=== PATIENT | male | born 1965 | race Caucasian/White ===

== ENCOUNTER 2023-01-16 12:07 | Outpatient (CLI) | payer OTHER, SELFPAY ==
--- NOTE | ~2023-01-16 | PE_ITS ---
EXAMINATION: PET_PETPSMAST_PT DATE: 01/16/2023 14:52 INDICATION: Prostate cancer TECHNIQUE: 8.798 mCi of pipflufolastat F-18 (18-F-DCFPyL) was administered i.v. Low dose computed to mography (CT) images were acquired from the base of the brain to the base of the brain to the proxima l thighs for attenuation correction and anatomic localization. Positron emission tomography (PET) kayla ges were acquired in the same distribution beginning 99 minutes after injection. Images including fus ed PET/CT images were reconstructed in axial, coronal, and sagittal planes. Automated exposure contro l technique was employed. The dose-length product was 1257.17mGy-cm. COMPARISON: None FINDINGS: Head/neck: Typical pattern of symmetric physiologic increased activity in the lacrimal, parotid and submandibula r glands as well as along the mucosa of the nasal and oral cavities, the otis-, naso- and hypopharynx, the glottis and esophagus. No pathologically enlarged cervical lymphadenopathy or suspicious foci of increased uptake in the visualized head or neck. Chest: Elevation of the right hemidiaphragm with associated atelectasis at the right lower lobe and basilar right middle lobe. No suspicious pulmonary nodules, pneumonia, pulmonary edema or pleural effusion. H eart size is normal. No pericardial effusion. Thoracic aorta is normal in caliber. No pathologically enlarged or PSMA avid thoracic lymphadenopathy. Abdomen/pelvis/proximal thighs: Physiologic renal accumulation and excretion of activity in the kidneys, bladder and along portions o f ureters. Photopenic defect associated with a 3.5 cm cyst at the upper pole of the right kidney. Nor mal degree and slightly heterogenous pattern of increased uptake throughout the liver and spleen with out radiologic correlate or dominant PSMA avid lesion. The gallbladder, pancreas and bilateral adrena l glands are normal. Typical physiologic distribution of moderate uptake the duodenum and proximal je junum with mild uptake scattered throughout the more distal bowel. Normal appendix. Prostatomegaly me asuring 5.0 x 4.2 similar without evident PSMA avid lesions No other abnormal foci of increased uptak e or pathologically enlarged lymphadenopathy in the abdomen, pelvis or proximal thighs. 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 No suspicious lytic, blastic or PSMA avid bone lesions. IMPRESSION: 1. No PSMA avid lesions suspicious for metastatic prostate cancer. Reviewed, dictated and finalized at location A.
== END 2023-01-16 12:08 | disposition home or self-care (01) ==
PROVIDERS: PCP Nurse Practitioner Family; Visit Provider Urology
DX: C61 Malignant neoplasm of prostate (principal)
CPT/HCPCS: 78815; A9595

== ENCOUNTER 2023-05-09 09:56 | Outpatient (CLI) | payer OTHER, SELFPAY ==
--- NOTE | 2023-05-09 10:43 | ECG_ITS ---
Measurements Intervals [place] Rate: 72 P: -5 KS: 121 QRS: 7 QRSD: 100 T: 41 QT: 406 QTc: 447 Interpretive Statements SINUS RHYTHM FREQUENT VENTRICULAR PREMATURE COMPLEXES BASELINE ARTIFACT- I, II, III, AVR, AVL, AVF, V2-V4 ABNORMAL ECG NO PREVIOUS ECG AVAILABLE FOR COMPARISON Electronically Signed On 05-09-2023 11:43:24 [employer] by Adonay Mayorga D.O.
[2023-05-09 11:07] LABS: Basophils Percent Auto 0.3 % (0.2-1.2); Eosinophils Absolute Auto 0.1 K/mm3 (0-0.3); Eosinophils Percent Auto 1.5 % (0-4.4); Hematocrit 47.6 % (42.0-52.0); Hemoglobin 15.1 g/dL (14.0-18.0); Immature Granulocyte Absolute 0.03 K/mm3 (0.00-0.031); Immature Granulocyte Percent A 0.4 % (0-0.5); Lymphocytes Absolute Auto 1.99 K/mm3 (0.9-3.2); Lymphocytes Percent Auto 29.3 % (18.3-44.2); Mean Corpuscular HGB Conc 31.7 g/dl (32-36); Mean Corpuscular Hemoglobin 27.7 pg (26-34); Mean Corpuscular Volume 87.3 fl (80-100); Mean Platelet Volume 10.9 fl (7.4-10.4); Monocytes Absolute Auto 0.5 K/mm3 (0.1-0.6); Monocytes Percent Auto 7.5 % (2.6-8.5); Neutrophils Absolute Auto 4.1 K/mm3 (1.3-6.7); Platelet Count Result 187 k/mm3 (150-375); Red Blood Count 5.45 M/mm3 (4.6-6.20); Red Cell Distribution Width 13.7 % (11.5-14.5); White Blood Count 6.8 K/mm3 (4.5-10.0)
[2023-05-09 11:16] LABS: Alanine Aminotransferase 26 U/L (6-50); Albumin Level 4.5 g/dL (3.5-5.1); Alkaline Phosphatase 66 U/L (38-126); Anion Gap 7 mmol/L (8-16); Aspartate Amino Transferase 29 U/L (17-59); Blood Urea Nitrogen 9 mg/dL (9-20); Calcium 9.4 mg/dL (8.4-10.2); Carbon Dioxide 32 mmol/L (22-30); Chloride 99 mmol/L (98-107); Estimated Glomerular Filt Rate > 60; Glucose 91 mg/dL (65-110); Potassium 3.3 mmol/L (3.4-5.0); Sodium 138 mmol/L (137-145)
[2023-05-09 11:18] LABS: Prothrombin Time 13.2 Seconds (11.1-14.7)
[2023-05-09 11:19] LABS: Partial Thromboplastin Time 31.4 SECONDS (22.3-36.8)
== END 2023-05-09 09:57 | disposition home or self-care (01) ==
LOC: ANHSURGERY 10:02
PROVIDERS: PCP Nurse Practitioner Family; Visit Provider Urology
DX: Z01.818 Encounter for other preprocedural examination (principal); I10 Essential (primary) hypertension; C61 Malignant neoplasm of prostate; R94.31 Abnormal electrocardiogram [ECG] [EKG]
CPT/HCPCS: 36415; 80053; 85025; 85610; 85730; 86850; 86900; 86901; 87086; 93005

== ENCOUNTER 2023-05-21 00:06 | Day surgery (SDC) | payer OTHER, SELFPAY ==
--- NOTE | 2023-05-09 09:51 | PC.NURSE ---
PRE-OP INSTRUCTIONS, PLEASE READ CAREFULLY Report to the Outpatient Waiting Room, entrance under the green pavilion located off [facility], at time _0600_ on date _05/21/23_. Planned Procedure Time: _0730_. PACK A SMALL OVERNIGHT BAG AND LEAVE IN THE CAR Time changes happen often and if your time is changed the preop area will call you the afternoon before. - You and your visitor will be asked to self-screen and do not enter if you have any COVID symptoms. - A mask is optional within the hospital at this time. -VISITING HOURS 8AM-8PM Patients may have clear liquids (water, carbonated beverages, clear teas, apple juice) until 3 hours prior to surgery (0430 AM) with a maximum of 20 ounces. - No food from midnight until time of surgery Take the following medications with a SIP of water the morning of surgery: _NONE_ DO NOT STOP ANY OF YOUR OTHER PRESCRIPTION MEDICATIONS PRIOR TO SURGERY ?EXCEPT THE FOLLOWING Medications to discontinue per [facility] - _MULTIVITAMIN 7 DAYS PRIOR TO SURGERY, Date to take last dose 05/13/23_ Please no make-up, nail divehi, hairspray, perfume, deodorant, or body powder the day of surgery. No jewelry (including any body piercings) or valuables the day of surgery, leave them at home. Please take a shower or bath the night before, or the morning of, surgery with an antibacterial soap. Wear comfortable, loose fitting clothing. - Jewelry must be removed prior to entering the operating room. Rings and piercings that are not removed may be cut off. - The hospital will not accept responsibility for valuables. - Please leave all valuables, including medications, at home the day of surgery. If you are going home after surgery, a licensed swing driver must drive you home. - NO public transportation without another adult if you receive anesthesia. - We recommend that an adult stay with you for 24 hours following discharge. - We also recommend that you do not drive, make important decision, drink alcoholic beverages, or take any drugs that were not prescribed by your health care provider for at least 24 hours after your discharge time. Follow any additional instructions given to you from your surgeon. If you or anyone in your household have experienced Covid symptoms in the past week, please notify your surgeon or the nurse liaison at the phone number below for possible testing. Instructions given to _PATIENT_and asked if any additional questions and then verbalized understanding. Patient advised to call surgeon office or pre surgery nurse liaison [phone] if any additional questions.
[2023-05-09 10:21] VITALS: BP 124/74; PULSE 82; RESP 20; TEMP 36.8; O2SAT 100; BMI 33.0
--- NOTE | 2023-05-20 13:43 | P.PNAN_ITS ---
Anes - Initial Pre Proc Eval Procedure: Operation Date: 05/21/23 07:30 Proposed Procedures p Robotic Assisted Prostatectomy with Pelvic Lymph Node Dissection - Cem Ivey MD Date/Time: 05/20/23 13:43 Surgeon: Cem Ivey MD Pre Op Diagnosis: Prostate Ca Patient Data Age: 57 Gender: M Height: 1.91 m Weight: 120.1 kg Last Vital Signs Temp 98.3 F 05/09/23 10:21 Pulse 82 05/09/23 10:21 Resp 20 05/09/23 10:21 BP 124/74 05/09/23 10:21 Pulse Ox 100 05/09/23 10:21 O2 Del Method Room Air 05/09/23 10:21 Allergies Allergy/AdvReac Type Severity Reaction Status Date / Time No Known Allergies Allergy Verified 05/21/23 06:02 Home Medications Medication Instructions Recorded Confirmed Type amlodipine 5 mg tablet 5 mg HS 05/09/23 05/21/23 History atorvastatin 20 mg tablet 20 mg HS 05/09/23 05/21/23 History hydrochlorothiazide 12.5 mg tablet 12.5 mg QAM 05/09/23 05/21/23 History egyepadb-hr-nupda 300 mcg-K 60 1 tablet PO DAILY 05/09/23 05/21/23 History mcg-lycop 600 mcg-lutein 300 mcg tablet (Centrum Silver Men) Patient hx anesthesia problems: none Family hx anesthesia problems: none Results Review: All pre-operative results and documents have been reviewed as part of the pre- operative evaluation. PMFSH Social History Social History Smoking status: Never smoker Second hand tobacco smoke exposure: No Alcohol intake: never Substance use: never Substance use type: does not use Living arrangements: with family Spiritual care concerns: No Anes - Eval Final PreProcedure Day of Procedure 05/20/23 13:43 Patient weight: obese Heart: regular rate and rhythm Lungs: clear to auscultation Airway: Mallampati scale class II Neurological: alert and oriented Last oral intake: >/= 8 hours ASA classification: III Emergent: no Anesthetic plan: proceed Anesthesia type and monitoring: general ETT and standard monitoring Results Review: All pre-operative results and documents have been reviewed as part of the pre- operative evaluation. Informed Consent: The patient's anesthetic plan and its attendant risks and benefits were discussed with the patient/family/POA. Questions were solicited and answers provided to the satisfaction of the patient/family/POA.
[2023-05-21] VITALS (14 sets, daily range): BP systolic 105–146; BP diastolic 56–97; PULSE 62–104; RESP 12–18; TEMP 36.1–37.1; O2SAT 93–100
[2023-05-21] MEDS: LACTATED RINGERS 1,000 ML 30 ML IV CONT ×2 (06:28→12:06)
--- NOTE | 2023-05-21 07:16 | WPDHPUPDATE1 ---
History and Physical Update Update Date/Time: 05/21/23 07:16 History and Physical has been reviewed, including an updated exam of the patient. There are NO changes in the patient's condition. Risks, benefits, and alternatives have been discussed and questions answered. Patient agrees to proceed with procedure. Proceed with robotic assist nerve sparing prostatectomy with possible plnd
[2023-05-21] MEDS: ceFAZolin 2 GM/D5W 50 ML 2 GM/50 ML BAG IVPB (07:30)
[2023-05-21] MEDS: BUPivacaine HCL 0.5% PF 30 ML VIAL INFILTRATE (08:19)
--- NOTE | 2023-05-21 11:55 | W.PM.PROC2 ---
Procedure Note - Detailed Date of Procedure 05/21/23 Pre-op Diagnosis Prostate Ca Post-op Diagnosis Same Procedure Performed Robotic assisted nerve-sparing prostatectomy Surgeon Cem Ivey MD Anesthesia General Description of Procedure Patient is taken to the operative suite correctly identified. Once anesthesia was obtained was placed in low-lying dorsal lithotomy position and prepped draped usual sterile fashion. Supraumbilical incision was made and carried down to the rectus fascia. Veress needle was inserted the abdomen insufflated 15 mmHg pressure. Camera port was then placed under direct vision. Other working ports were placed. Patient was placed in steep Trendelenburg and the robot was docked. He did have quite a bit of adhesions of his left colon which were taken down. Posterior approach was then performed. The vas is were transected. He has very small seminal vesicles the left much smaller than the right. We did dissect these out. Plane between the prostate and rectum was developed. Bladder was then taken down. Puboprostatics were incised after the space of Retzius was developed bilaterally. Dorsal venous complex was isolated and secured using an 0 Vicryl. This was then lifted to the pubic bone. Bladder neck sparing procedure was then performed. The posterior bladder neck was open. The posterior sheath was incised in the prior dissected seminal vesicles and vas were isolated. Pedicles were clips. Bilateral nerve-sparing was performed although it was a wider dissection on the left side is things appeared to be somewhat adhered more. Dorsal venous complex was transected. Urethra was also transected. This was placed in Endo-Catch bag. Given his negative PSMA scan and a significant amount fat overlying the iliac vessels making it difficult to dissect out the external iliac vein I opted to hold off on lymphadenopathy. A Semaj stitch was then placed. Bladder neck was then anastomosed to the urethral stump using V lock in a running fashion. There was good approximation of mucosa to mucosa. It was a watertight closure. Sixteen Norwegian Phipps was placed inflated with 10 cc. 200 cc were placed in the Phipps without evidence of extravasation. All lap count needle count sponge counts were correct. SHANTE drain was brought out through the 4th working port site. This was secured. The robot was undocked. Midline incision was extended the specimen brought out. Rectus fascia was closed using 0 Vicryl. Subcuticular stitches were then placed. Incisions were anesthetized using 1% lidocaine. Patient tolerated procedure well without any complications and was taken recovery stable condition. This completes dictation please send a copy of this op note to my office. Estimated Blood Loss 100 Drains Yes Packing No Pathology Yes Complications No immediate complications Condition Stable Disposition PACU
[2023-05-21] MEDS: fentaNYL CITRATE INJ (*CRX) 100 MCG/2 ML VIAL 25 MCG IV PUSH ×4 (12:36→12:55)
--- NOTE | 2023-05-21 15:12 | ADMGEN ---
This patient, Efrain Wing, was admitted to 3 [facility] Surg Room 324-01. Patient/family oriented to hospital policies and general routines including ID bracelet, bed and alarms, visiting hours, pain management, procedures, bathroom and other care routines, personal items, smoking policy, room service/diet, and visiting hours. Information on how to activate the Rapid Response Team has been discussed. Patient/Family are encouraged to report perceived risks to care and to ask questions if they do not understand what they are told or what they should do. patient arrived at 1400 by stretcher from OR, denies pain, at bedside, hamida castro on, scd's on, fluids started
[2023-05-21] MEDS: LACTATED RINGERS 1,000 ML 125 ML IV CONT (15:18)
[2023-05-21] MEDS: amLODIPine BESYLATE 5 MG TABLET BY MOUTH (20:47)
[2023-05-21] MEDS: ATORVASTATIN 20 MG TABLET BY MOUTH (20:47)
[2023-05-21] MEDS: KETOROLAC 30 MG/ML VIAL (*BKC) IV PUSH (21:16)
[2023-05-22] MEDS: HYDROcodone/acetaminophen (*CRX) 5-325 MG TABLET 1 TAB PO (00:15)
[2023-05-22 03:35] VITALS: BP 108/69; PULSE 82; RESP 12; TEMP 36.4; O2SAT 97
[2023-05-22] MEDS: KETOROLAC 30 MG/ML VIAL (*BKC) IV PUSH (03:40)
[2023-05-22 06:52] LABS: Anion Gap 5 mmol/L (8-16); Blood Urea Nitrogen 8 mg/dL (9-20); Calcium 8.4 mg/dL (8.4-10.2); Carbon Dioxide 29 mmol/L (22-30); Chloride 102 mmol/L (98-107); Estimated CRCL calculation 100 ml/min; Estimated Glomerular Filt Rate > 60; Glucose 83 mg/dL (65-110); Potassium 3.8 mmol/L (3.4-5.0); Sodium 136 mmol/L (137-145)
[2023-05-22 06:58] LABS: Hematocrit 37.8 % (42.0-52.0); Hemoglobin 12.1 g/dL (14.0-18.0)
[2023-05-22 07:35] VITALS: BP 105/63; PULSE 80; RESP 13; TEMP 36.3; O2SAT 95
--- NOTE | 2023-05-22 08:08 | WPDUROPN2 ---
Progress Note: A&P Assessment and Plan (1) Adenocarcinoma of prostate: Code(s): C61 - Malignant neoplasm of prostate Status: Acute Assessment and Plan: Doing well. Increase activity. Most likely discharge home later today. Will plan on removing SHANTE today also. Follow-up in 1 week for catheter cystogram Subjective Subjective Date/Time Seen: 05/22/23 08:08 Post Op day: 1 (Robotic assisted nerve-sparing prostatectomy) Principal diagnosis: Adenocarcinoma prostate Interval history: Doing well overall postoperative day 1. Has some minimal discomfort. SHANTE with minimal all port. Urine is clear at this time Review of Systems Review of Systems: All systems reviewed & are unremarkable except as noted in HPI and below Exam Const: General: cooperative and comfortable Resp: Effort & Inspection: normal respiratory effort Cardio: Rate: regular rate Rhythm: regular rhythm GI: GI Palp: Yes Soft to palpation Urinary Catheter: Urinary Catheter: patent and draining and urine clear Objective Data Vital Signs Vital Signs: Vital Signs - 24 hr 05/21/23 12:06 05/21/23 12:15 05/21/23 12:30 Temperature 36.1 C L Pulse Rate 103 H 97 87 Respiratory Rate 17 17 12 Blood Pressure 137/97 H 124/75 135/88 Pulse Oximetry 99 100 94 Oxygen Delivery Simple Face Mask Simple Face Mask Nasal Cannula Oxygen Flow Rate 8 8 2 05/21/23 12:45 05/21/23 13:00 05/21/23 13:15 Temperature Pulse Rate 87 92 93 Respiratory Rate 14 14 14 Blood Pressure 132/85 126/84 128/85 Pulse Oximetry 93 95 96 Oxygen Delivery Nasal Cannula Nasal Cannula Nasal Cannula Oxygen Flow Rate 2 2 2 05/21/23 13:30 05/21/23 13:45 05/21/23 14:10 Temperature 36.8 C Pulse Rate 103 H 101 H 97 Respiratory Rate 15 16 18 Blood Pressure 128/86 119/78 119/76 Pulse Oximetry 100 98 96 Oxygen Delivery Nasal Cannula Nasal Cannula Oxygen Flow Rate 2 2 05/21/23 14:25 05/21/23 14:10 05/21/23 15:35 Temperature 36.3 C L 37.1 C Pulse Rate 96 96 Respiratory Rate 18 18 Blood Pressure 119/79 117/80 Pulse Oximetry 97 97 98 Oxygen Delivery Nasal Cannula Oxygen Flow Rate 2 05/21/23 19:32 05/21/23 22:13 01/23/24 23:10 Temperature 36.7 C 36.4 C Pulse Rate 62 75 Respiratory Rate 16 12 Blood Pressure 120/67 105/56 L Pulse Oximetry 98 97 Oxygen Delivery Room Air Oxygen Flow Rate 05/22/23 03:35 Temperature 36.4 C Pulse Rate 82 Respiratory Rate 12 Blood Pressure 108/69 Pulse Oximetry 97 Oxygen Delivery Oxygen Flow Rate Intake/Output Intake/Output: Intake & Output 05/19/23 05/20/23 05/21/23 05/22/23 23:59 23:59 23:59 23:59 Intake Total 790 2350 Output Total 405 580 Balance 385 1770 Meds/Results Medications: Active Medications Generic Name Dose Route Start Last Admin Trade Name Freq PRN Reason Stop Dose Admin Hydrocodone Bitart/Acetaminophen 1 tab 05/21/23 13:50 05/22/23 00:15 Hydrocodone/Acetaminophen (*Crx) 5-325 Mg Tablet PO 1 tab Q6H PRN Administration Pain Rated 1-3 Hydrocodone Bitart/Acetaminophen 2 tab 05/21/23 13:50 Hydrocodone/Acetaminophen (*Crx) 5-325 Mg Tablet PO Q6H PRN Pain Rated 4-6 Amlodipine Besylate 5 mg 05/21/23 21:00 05/21/23 20:47 Amlodipine Besylate 5 Mg Tablet BY MOUTH 5 mg HS CRISTIAN Administration Atorvastatin Calcium 20 mg 05/21/23 21:00 05/21/23 20:47 Atorvastatin 20 Mg Tablet BY MOUTH 20 mg HS CRISTIAN Administration Hydrochlorothiazide 12.5 mg 05/22/23 09:00 Hydrochlorothiazide 12.5 Mg Capsule BY MOUTH QAM CRISTIAN Hyoscyamine 0.125 mg 05/21/23 13:50 Hyoscyamine Sulfate 0.125 Mg Tablet SUBLINGUAL Q4H PRN Bladder Spasm Ketorolac Tromethamine 30 mg 05/21/23 13:50 05/22/23 03:40 Ketorolac 30 Mg/Ml Vial (*Bkc) IV PUSH 05/22/23 13:49 30 mg Q6H PRN Administration Pain Rated 4-6 Levofloxacin 500 mg 05/22/23 09:00 Levofloxacin 500 Mg Tablet PO DAILY CRISTIAN Morphine Sulfate
[2023-05-22] MEDS: hydroCHLOROthiazide 12.5 MG CAPSULE BY MOUTH (09:05)
[2023-05-22] MEDS: levoFLOXacin 500 MG TABLET PO (09:05)
--- NOTE | 2023-05-22 09:26 | WPDANESPN ---
Anes - Prog Note Post-Op Date/Time: 05/22/23 09:26 Cardiovascular status: normal Respiratory status: normal Airway patency: baseline Mental status: baseline Post-Op hydration status: normal Vital Signs: Last Vital Signs Temp 36.3 C L 05/22/23 07:35 Pulse 80 05/22/23 07:35 Resp 13 05/22/23 07:35 BP 105/63 05/22/23 07:35 Pulse Ox 95 05/22/23 07:35 O2 Del Method Room Air 05/21/23 22:13 O2 Flow Rate 2 05/21/23 14:10 Pain Score (VAS): 07/06 I/O: Intake & Output 05/21/23 05/22/23 05/22/23 23:59 07:59 15:59 Intake Total 240 2350 Output Total 200 580 Balance 40 1770 Laboratory Tests 05/22/23 06:10 05/22/23 06:10 05/22/23 06:10 Hgb 12.1 L D Hct 37.8 L Sodium 136 L Potassium 3.8 Chloride 102 Carbon Dioxide 29 Anion Gap 5 L BUN 8 L Creatinine 1.00 Estim Creat Clear Calc 100 Estimated GFR > 60 Glucose 83 Calcium 8.4 Post-procedural complaints: none Patient Feedback: Patient satisfied with anesthetic care.
[2023-05-22] MEDS: traMADol HCL (*CRX) 50 MG TABLET PO ×2 (10:00→15:31)
[2023-05-22 15:35] VITALS: BP 114/78; PULSE 103; RESP 13; TEMP 36.6; O2SAT 94
[2023-05-22] MEDS: ONDANSETRON INJ 4 MG/2 ML VIAL IV PUSH (16:38)
== END 2023-05-22 18:00 | disposition home or self-care (01) ==
LOC: ANHSURGERY 05:55 → ANH3MEDSUR 14:24
PROVIDERS: PCP Nurse Practitioner Family; Visit Provider Urology
PROC: 0VT04ZZ Resection of Prostate, Percutaneous Endoscopic Approach (ICD-10-PCS; CPT 55867; principal; 2023-05-21 07:30)
DX: C61 Malignant neoplasm of prostate (principal); E66.9 Obesity, unspecified; Z68.31 Body mass index [BMI] 31.0-31.9, adult
CPT/HCPCS: 55866; S2900; 36415; 80048; 80053; 85014; 85018; 85025; 85610; 85730; 86850; 86900; 86901; 87086; 88309; 93005; A9270; J0330; J0690; J1170; J1885; J2250; J2270; J2405; J2704; J3010; J7030; J7120

== ENCOUNTER 2023-05-24 16:00 | Observation (INO) | payer OTHER, SELFPAY ==
[2023-05-24] VITALS (22 sets, daily range): BP systolic 110–137; BP diastolic 74–97; PULSE 70–105; RESP 10–17; TEMP 36.6–37; O2SAT 91–99; BMI 30.8
--- NOTE | ~2023-05-24 | CT_ITS ---
EXAMINATION: CT abdomen pelvis w con DATE: 05/24/2023 18:41 INDICATION: Prostate cancer status post prostatectomy. Pelvic pain. Nausea and vomiting. Constipation . TECHNIQUE: Computed tomography (CT) of the abdomen and pelvis was performed with 100 mL Omnipaque 350 intravenous contrast. Automated exposure control and iterative reconstruction technique were employe d. The dose-length product was 1981.50 mGy-cm. COMPARISON: PET/CT 01/16/23 FINDINGS: The visualized portions of the lung bases demonstrate mild atelectasis. No pleural effusion . The heart size is normal. No pericardial effusion. The liver and spleen are normal. There is sludge in the gallbladder, which is normal in size. Calcifications in the tail of the pancreas are consiste nt with chronic pancreatitis. The adrenal glands are normal. There are cysts in the kidneys measuring up to 4.0 cm on the right. There is a Phipps catheter in expected position. There is a small volume o f hematoma in the bladder. There are dilated loops of small bowel without focal transition point and with wall thickening of some of the small bowel loops. The appendix is normal. There is free intraper itoneal gas, consistent with recent surgery. Extensive body wall gas is noted. There is a small volum e of ascites. There are bilateral inguinal hernias containing fat. There is skin thickening in the sc rotum. There are chronic bilateral L5 pars defects. There is 11 mm anterolisthesis of L5 on S1. There is severe thoracic and lumbar spondylosis. There is mild chronic anterior wedging of multiple verteb ral bodies. IMPRESSION: 1. Extensive body wall gas. 2. Free intraperitoneal gas, consistent with recent surgery. 3. Small volume of ascites. 4. Multiple dilated loops of small bowel with wall thickening of some of the loops, consistent with e nteritis and adynamic ileus. 5. Small volume of hematoma in the bladder. Reviewed, dictated and finalized at location [facility]. [facility] IMPRESSION: 1. Extensive body wall gas. 2. Free intraperitoneal gas, consistent with recent surgery. 3. Small volume of ascites. 4. Multiple dilated loops of small bowel with wall thickening of some of the lo ops, consistent with enteritis and adynamic ileus. 5. Small volume of hematoma in the bladder.
--- NOTE | 2023-05-24 16:49 | ED.GENADULT ---
HPI - General Adult General Chief complaint: Recheck/Abnormal Lab/Rx Stated complaint: post op problems Time Seen by Provider: 05/24/23 16:49 Source: patient History of Present Illness HPI narrative: Patient is status post robotic assisted nerve-sparing prostatectomy secondary to adenocarcinoma prostate May 21 2023. Patient was discharged 1 day later, since that time until now patient been vomiting nonstop on average 8-10 times a day unable to keep food, fluid or medicine down. Patient had Phipps catheter placed on the during the surgery. Used to have urinary tract infection prior to the surgery and supposed to be on Bactrim which you could intake for the last 48 hours because of the vomiting. Patient was seen at [facility] last night and discharged from the emergency room at 5:00 a.m. today with possible enteritis. Patient is back to our emergency room because his vomiting did not get better although he had been discharged on Zofran and tramadol. Patient denies any fever, chills, diarrhea, constipation, abdominal pain, chest pain or shortness of breath. He reports a lot of gas. Currently patient main complaint is feeling dry and exhausted Related Data Home Medications Medication Instructions Recorded Confirmed amlodipine 5 mg tablet 5 mg HS 05/09/23 05/21/23 atorvastatin 20 mg tablet 20 mg HS 05/09/23 05/21/23 hydrochlorothiazide 12.5 mg tablet 12.5 mg QAM 05/09/23 05/21/23 dpcyyocc-go-xglse 300 mcg-K 60 1 tablet PO DAILY 05/09/23 05/21/23 mcg-lycop 600 mcg-lutein 300 mcg tablet (Centrum Silver Men) Allergies Allergy/AdvReac Type Severity Reaction Status Date / Time No Known Allergies Allergy Verified 05/24/23 16:51 Review of Systems Review of Systems: All systems reviewed & are unremarkable except as noted in HPI and below [facility] Social History Social History Smoking status: Never smoker Second hand tobacco smoke exposure: No Alcohol intake: never Substance use: never Substance use type: does not use Do You Feel Safe in your Home?: No Lack of Transportation: No Lack of Food: Never True Current Housing: I Have Housing Concerned About Future Housing: No Difficulty Paying Gas/Electric Bills: No Difficulty Paying for Meds: No Currently Unemployed: No Education: High School Diploma/GED Difficulty w/ Childcare or Family Care: No Living arrangements: with family Spiritual care concerns: No Exam Narrative: General appearance: Well-developed, well-nourished Skin: Normal color Head: Normocephalic, nontraumatic Eyes: Clear conjunctiva ENT: Oropharynx normal, ears normal, nose normal Neck: Supple, nontender Chest and respiratory: Airway patent, no respiratory distress, no accessory muscle use Heart: Regular rate/rhythm Abdomen: Soft, nontender, no organomegaly, quiet bowel sounds, surgical scar dry and clean Vascular: Normal peripheral pulses, normal capillary refill. Musculoskeletal: Normal range of motion, nontender back Neurologic: Alert and oriented ?3, [employer] is normal as tested, no gross motor deficit Course Consultations Consultation #1: DR ORDONEZ AGREED WITH THE PLAN AND ADMISSION. Date: 05/24/23 Time: 20:51 Vital Signs Vital signs: Vital Signs Temperature 37.0 C 05/24/23 16:00 Pulse Rate 105 H 05/24/23 16:00 Respiratory Rate 16 05/24/23 16:00 Blood Pressure 124/83 05/24/23 16:00 Pulse Oximetry 98 05/24/23 16:00 Temperature 37.0 C 05/24/23 16:00 Pulse Rate 79 05/24/23 18:05 Respiratory Rate 14 05/24/23 18:05 Blood Pressure 126/84 05/24/23 18:05 Pulse Oximetry 96
[2023-05-24 17:50] LABS: Basophils Percent Auto 0.2 % (0.2-1.2); Eosinophils Percent Auto 0.1 % (0-4.4); Hematocrit 44.9 % (42.0-52.0); Hemoglobin 14.2 g/dL (14.0-18.0); Immature Granulocyte Absolute 0.06 K/mm3 (0.00-0.031); Immature Granulocyte Percent A 0.4 % (0-0.5); Lymphocytes Absolute Auto 1.13 K/mm3 (0.9-3.2); Mean Corpuscular HGB Conc 31.6 g/dl (32-36); Mean Corpuscular Hemoglobin 27.7 pg (26-34); Mean Corpuscular Volume 87.7 fl (80-100); Mean Platelet Volume 10.9 fl (7.4-10.4); Monocytes Percent Auto 6.9 % (2.6-8.5); Neutrophils Absolute Auto 11.9 K/mm3 (1.3-6.7); Neutrophils Percent Auto 84.4 % (45.5-73.1); Platelet Count Result 297 k/mm3 (150-375); Red Blood Count 5.12 M/mm3 (4.6-6.20); Red Cell Distribution Width 14.6 % (11.5-14.5); White Blood Count 14.1 K/mm3 (4.5-10.0)
[2023-05-24 18:03] LABS: Appearance Urine Cloudy (Clear); Bacteria Urine None Seen /hpf; Bilirubin Urine Negative (Negative); Blood Urine 3+ (Negative); Color Urine Dark Yellow (Yellow); Glucose Urine UA Negative (Negative); Ketones Urine 1+ mg/dL (Negative); Leukocyte Esterase Ur Trace LEU/UL (Negative); Need Manual Microscopic Reviewed; Nitrate Urine Negative (Negative); Protein Urine 2+ mg/dL (Negative); RBC Urine 51-100 /hpf (0-2); Squamous Epithelial Cell Urine None seen /hpf (Few); pH Urine 6.5 (5.0-9.0)
[2023-05-24] MEDS: SODIUM CHLORIDE 0.9% IV 2,000 ML 999 ML IV CONT (18:03)
[2023-05-24 18:04] LABS: Add Urine Microscopic? YES; Specific Grav Ur 1.043 (1.001-1.035)
[2023-05-24 18:06] LABS: Lactic Acid Reflex 1.6 mmol/L (0.7-2.0)
[2023-05-24 18:07] LABS: Alanine Aminotransferase 16 U/L (6-50); Albumin Level 3.9 g/dL (3.5-5.1); Alkaline Phosphatase 68 U/L (38-126); Anion Gap 5 mmol/L (8-16); Aspartate Amino Transferase 20 U/L (17-59); Blood Urea Nitrogen 18 mg/dL (9-20); Calcium 9.6 mg/dL (8.4-10.2); Carbon Dioxide 36 mmol/L (22-30); Chloride 97 mmol/L (98-107); Estimated CRCL calculation 110 ml/min; Estimated Glomerular Filt Rate > 60; Glucose 138 mg/dL (65-110); Lipase 37 U/L (23-300); Potassium 3.5 mmol/L (3.4-5.0); Sodium 138 mmol/L (137-145)
[2023-05-24 18:29] LABS: Influenza A QL RT-PCR Negative (Negative); Influenza B QL RT-PCR Negative (Negative); RSV RNA, RT-PCR Negative (Negative); SARS-CoV-2 RNA PCR Negative (Negative)
--- NOTE | 2023-05-24 19:20 | PC.NURSE ---
this rn assumed care of patient. this rn took patient report from jet red.
--- NOTE | 2023-05-24 19:22 | PC.NURSE ---
report given to Tangela PAGAN, all questions answered
--- NOTE | 2023-05-24 20:24 | PM.IMHP ---
H&P: HPI History of Present Illness Date/Time: 05/24/23 20:24 Chief Complaint: Weakness, nausea vomiting Narrative: Patient has history of prostatic adenocarcinoma cancer for which he got robotic prostatectomy on May 22, he stated surgery was prolonged. After discharge patient has not been able to keep anything down, he vomited 8 x 2 days ago and ever since then hardly eat or drink, he denied diarrhea cough congestion sore throat or abdominal pain. No fever. Reported associated bloating, he passes gas. He presented to a different ED yesterday where he was evaluated with no significant finding, he was rehydrated and discharged home however symptoms continued. He formed he has urologist who recommended coming to the ED for subsequent evaluation. Workup in the emergency department revealed the patient has adynamic ileus, colitis and extensive abdominal wall gas. Patient has been rehydrated, nausea has improved however still complain of weakness, no significant electrolyte imbalance and viral screen was negative. Review of Systems Review of Systems: All systems reviewed & are unremarkable except as noted in HPI and below PMFSH Social History Social History Smoking status: Never smoker Second hand tobacco smoke exposure: No Alcohol intake: never Substance use: never Substance use type: does not use Do You Feel Safe in your Home?: No Lack of Transportation: No Lack of Food: Never True Current Housing: I Have Housing Concerned About Future Housing: No Difficulty Paying Gas/Electric Bills: No Difficulty Paying for Meds: No Currently Unemployed: No Education: High School Diploma/GED Difficulty w/ Childcare or Family Care: No Living arrangements: with family Spiritual care concerns: No Meds Home Medications and Allergies Home Medications Medication Instructions Recorded Confirmed Type amlodipine 5 mg tablet 5 mg HS 05/09/23 05/21/23 History atorvastatin 20 mg tablet 20 mg HS 05/09/23 05/21/23 History hydrochlorothiazide 12.5 mg tablet 12.5 mg QAM 05/09/23 05/21/23 History [id number]-[id number] 300 mcg-K 60 1 tablet PO DAILY 05/09/23 05/21/23 History mcg-lycop 600 mcg-lutein 300 mcg tablet (Centrum Silver Men) sulfamethoxazole 800 1 tablet PO DAILY #7 tabs 05/22/23 Rx mg-trimethoprim 160 mg tablet (Bactrim DS) tramadol 50 mg tablet 50 mg PO Q6H PRN pain #20 tabs 05/22/23 Rx Allergies Allergy/AdvReac Type Severity Reaction Status Date / Time No Known Allergies Allergy Verified 05/24/23 16:51 Vital Signs Vital Signs - 24 hr 05/24/23 16:00 05/24/23 16:52 05/24/23 18:05 Temperature 98.6 F Pulse Rate 105 H 88 79 Respiratory Rate 16 15 14 Blood Pressure 124/83 137/97 H 126/84 Pulse Oximetry 98 95 95 Oxygen Delivery Oxygen Flow Rate 05/24/23 19:08 05/24/23 16:55 05/24/23 17:00 Temperature Pulse Rate 91 89 Respiratory Rate 13 15 Blood Pressure 131/86 Pulse Oximetry 96 96 94 Oxygen Delivery Nasal Cannula Oxygen Flow Rate 2 05/24/23 17:01 05/24/23 17:48 05/24/23 18:00 Temperature Pulse Rate 89 83 84 Respiratory Rate 16 12 12 Blood Pressure Pulse Oximetry 95 95 95 Oxygen Delivery Oxygen Flow Rate 05/24/23 18:15 05/24/23 18:16 05/24/23 18:42 Temperature Pulse Rate 70 70 84 Respiratory Rate 11 L 11 L Blood Pressure 124/82 Pulse Oximetry 97 98 96 Oxygen Delivery Oxygen Flow Rate 05/24/23 18:43 05/24/23 18:48 Temperature Pulse Rate 83 84 Respiratory Rate 16 Blood Pressure 110/78 Pulse Oximetry 96 94 Oxygen Delivery Oxygen Flow Rate Exam Narrative: General:patient is alert oriented x4, not in distress HEENT: Normocephalic atraumatic, EOMI Respiratory: Clear to auscultation bilaterally Cardiovascular: Regular rate and rhythm normal no gallop no edema Gastrointestinal: Surgical incision sites clean and well dressed no
[2023-05-24] MEDS: metroNIDAZOLE 500 MG/ISO 100ML 500 MG/100 ML BAG 100 MG IVPB (21:00)
--- NOTE | 2023-05-24 23:00 | ADMGEN ---
This patient, Efrain Wing, was admitted to 3 Med Surg Room 301-01 at 2120. Patient/family oriented to hospital policies and general routines including ID bracelet, bed and alarms, visiting hours, pain management, procedures, bathroom and other care routines, personal items, smoking policy, room service/diet, and visiting hours. Information on how to activate the Rapid Response Team has been discussed. Patient/Family are encouraged to report perceived risks to care and to ask questions if they do not understand what they are told or what they should do.
[2023-05-24] MEDS: SODIUM CHLORIDE 0.9% IV 1,000 ML 125 ML IV CONT (23:16)
[2023-05-24] MEDS: levoFLOXacin 750 MG/D5W 150 ML 750 MG/150 ML BAG 100 MG IVPB (23:16)
[2023-05-25 00:36] VITALS: BP 117/77; PULSE 74; RESP 13; TEMP 36.5; O2SAT 98
[2023-05-25] MEDS: metroNIDAZOLE 500 MG/ISO 100ML 500 MG/100 ML BAG 100 MG IVPB ×3 (05:28→20:47)
[2023-05-25 05:35] VITALS: BP 120/81; PULSE 79; RESP 12; TEMP 36.5; O2SAT 97
[2023-05-25 06:18] LABS: Basophils Absolute Auto 0.1 K/mm3 (0.0-0.1); Basophils Percent Auto 0.5 % (0.2-1.2); Eosinophils Absolute Auto 0.3 K/mm3 (0-0.3); Eosinophils Percent Auto 3.4 % (0-4.4); Hematocrit 38.1 % (42.0-52.0); Hemoglobin 12.2 g/dL (14.0-18.0); Immature Granulocyte Absolute 0.05 K/mm3 (0.00-0.031); Immature Granulocyte Percent A 0.5 % (0-0.5); Lymphocytes Absolute Auto 1.48 K/mm3 (0.9-3.2); Lymphocytes Percent Auto 14.7 % (18.3-44.2); Mean Corpuscular Hemoglobin 28.2 pg (26-34); Mean Corpuscular Volume 88.2 fl (80-100); Mean Platelet Volume 10.7 fl (7.4-10.4); Monocytes Absolute Auto 0.8 K/mm3 (0.1-0.6); Monocytes Percent Auto 8.2 % (2.6-8.5); Neutrophils Absolute Auto 7.3 K/mm3 (1.3-6.7); Neutrophils Percent Auto 72.7 % (45.5-73.1); Platelet Count Result 234 k/mm3 (150-375); Red Blood Count 4.32 M/mm3 (4.6-6.20); Red Cell Distribution Width 14.6 % (11.5-14.5); White Blood Count 10.1 K/mm3 (4.5-10.0)
[2023-05-25 06:30] LABS: Anion Gap 5 mmol/L (8-16); Blood Urea Nitrogen 17 mg/dL (9-20); Calcium 8.7 mg/dL (8.4-10.2); Carbon Dioxide 31 mmol/L (22-30); Chloride 101 mmol/L (98-107); Estimated CRCL calculation 121 ml/min; Estimated Glomerular Filt Rate > 60; Glucose 98 mg/dL (65-110); Potassium 3.2 mmol/L (3.4-5.0); Sodium 137 mmol/L (137-145)
[2023-05-25] MEDS: SODIUM CHLORIDE 0.9% IV 1,000 ML 125 ML IV CONT (08:33)
[2023-05-25 08:35] VITALS: O2SAT 94
[2023-05-25] MEDS: hydroCHLOROthiazide 12.5 MG CAPSULE PO (08:35)
[2023-05-25 09:21] VITALS: PULSE 89; O2SAT 94
--- NOTE | 2023-05-25 11:10 | PM.CNGS ---
Assessment and Plan Assessment and plan (1) Adynamic ileus: Code(s): K56.0 - Paralytic ileus Status: Acute Assessment and Plan: slowly resolving, exam benign, having bowel sounds and flatus, replace electrolytes, encourage out of bed, ambulation, start clears for now (2) Adenocarcinoma of prostate: Code(s): C61 - Malignant neoplasm of prostate Status: Acute Assessment and Plan: status post prostatectomy, management per urology History of Present Illness Consult details Consult date: 05/25/23 Reason for consult: abdominal pain Requesting physician: Henry Hobbs MD Narrative: The patient is a 57-year-old male presenting to the emergency department complaining of intractable nausea and vomiting over the last few days. The patient reports that he has not had a bowel movement since 05/20. The patient had robotic assisted prostatectomy on 05/21. Workup in the emergency department, including imaging, is significant for adynamic ileus. Of note, the patient reports he feels better this morning and is passing flatus. Review of Systems Review of Systems: All systems reviewed & are unremarkable except as noted in HPI and below PMFSH Family History Family History Father Malignant neoplasm of prostate Esophageal cancer Sibling Malignant neoplasm of prostate Basal cell carcinoma Mother Hypertension Basal cell carcinoma Other Stomach cancer paternal uncle Social History Social History Smoking status: Never smoker Second hand tobacco smoke exposure: No Alcohol intake: current Drinks per week: 1 Substance use: never Substance use type: does not use Do You Feel Safe in your Home?: Yes Lack of Transportation: No Lack of Food: Never True Current Housing: I Have Housing Concerned About Future Housing: No Difficulty Paying Gas/Electric Bills: No Difficulty Paying for Meds: No Currently Unemployed: No Education: Bachelor's Degree Difficulty w/ Childcare or Family Care: No Living arrangements: with family Spiritual care concerns: No Meds Home Medications and Allergies Home Medications Medication Instructions Recorded Confirmed Type amlodipine 5 mg tablet 5 mg HS 05/09/23 05/24/23 History atorvastatin 20 mg tablet 20 mg HS 05/09/23 05/24/23 History hydrochlorothiazide 12.5 mg tablet 12.5 mg PO DAILY 05/09/23 05/24/23 History [id number] 300 mcg-K 60 1 tablet PO DAILY 05/09/23 05/24/23 History mcg-lycop 600 mcg-lutein 300 mcg tablet (Centrum Silver Men) tramadol 50 mg tablet 50 mg PO Q6H PRN pain #20 tabs 05/22/23 05/24/23 Rx Allergies Allergy/AdvReac Type Severity Reaction Status Date / Time No Known Allergies Allergy Verified 05/24/23 23:15 Vital Signs Vital Signs - 24 hr 05/24/23 16:00 05/24/23 16:52 05/24/23 18:05 Temperature 37.0 C Pulse Rate 105 H 88 79 Respiratory Rate 16 15 14 Blood Pressure 124/83 137/97 H 126/84 Pulse Oximetry 98 95 95 Oxygen Delivery Oxygen Flow Rate 05/24/23 19:08 05/24/23 16:55 05/24/23 17:00 Temperature Pulse Rate 91 89 Respiratory Rate 13 15 Blood Pressure 131/86 Pulse Oximetry 96 96 94 Oxygen Delivery Nasal Cannula Oxygen Flow Rate 2 05/24/23 17:01 05/24/23 17:48 05/24/23 18:00 Temperature Pulse Rate 89 83 84 Respiratory Rate 16 12 12 Blood Pressure Pulse Oximetry 95 95 95 Oxygen Delivery Oxygen Flow Rate 05/24/23 18:15 05/24/23 18:16 05/24/23 18:42 Temperature Pulse Rate 70 70 84 Respiratory Rate 11 L 11 L Blood Pressure 124/82 Pulse Oximetry 97 98 96 Oxygen Delivery Oxygen Flow Rate 05/24/23 18:43 05/24/23 18:48 05/24/23 20:08 Temperature Pulse Rate 83 84 82 Respiratory Rate 16 12 Blood Pressure 110/78 Pulse Oximetry 96 94 97 Oxygen Delivery Oxygen Flow Rate 05/24/23 20:15
[2023-05-25 14:00] VITALS: BP 115/77; PULSE 76; RESP 18; TEMP 36.5; O2SAT 97
--- NOTE | 2023-05-25 15:45 | PM.IMPN ---
Progress Note: A&P Assessment and Plan (1) Adynamic ileus: Code(s): K56.0 - Paralytic ileus Status: Acute (2) Vomiting: Code(s): R11.10 - Vomiting, unspecified Status: Acute (3) Enteritis: Code(s): K52.9 - Noninfective gastroenteritis and colitis, unspecified Status: Acute (4) UTI (urinary tract infection): Code(s): N39.0 - Urinary tract infection, site not specified Status: Acute (5) Colitis: Code(s): K52.9 - Noninfective gastroenteritis and colitis, unspecified Status: Acute (6) Gastroenteritis: Code(s): K52.9 - Noninfective gastroenteritis and colitis, unspecified Status: Acute (7) Ileus, postoperative: Code(s): K91.89 - Other postprocedural complications and disorders of digestive system; K56.7 - Ileus, unspecified Status: Acute (8) Adenocarcinoma of prostate: Code(s): C61 - Malignant neoplasm of prostate Status: Acute Time Spent With Patient Time: Continue with current medications Continue with IV antibiotics in the form of IV levofloxacin and metronidazole ... Day 2 Continue with the IV hydration; decreased rate from 125 to 75 cc/hour Hold off on diuretics General surgery consultation reviewed and appreciated Started patient on clear liquid diet Advance diet slowly as Dr. Garcia Urology consult given for evaluation and top management recommendations DC planning to be considered in a.m. if he remains stable and cleared by specialists ? Patient seen and examined at bedside during my morning rounds ? Collaborated with patient's nurse at the bedside in detail and addressed all concerns ? Labs, electrolytes, radiology, investigations and test results reviewed ? Consult/Nursing/Ancilliary notes on the chart reviewed and appreciated ? Spoke with patient/family at the bedside and answered all the questions that they had Repeat labs in a.m. Electrolyte replacement as per protocol. Patient will be monitored very closely on the floor. Further recommendations as per the hospital course. Time with patient: 25 - 35 minutes Subjective Date/time seen: 05/25/23 15:45 Interval history: Patient seen and evaluated by General surgery. Started on clear liquid diet. Abdominal pain is slowly improving and patient is passing flatus. Review of Systems Review of Systems: 14 systems were reviewed with pertinent positives and negatives per HPI. Except as documented in the HPI/progress notes, all other systems were reviewed and are negative. All systems reviewed & are unremarkable except as noted in HPI and below Exam Narrative: PHYSICAL EXAMINATION: Vital signs: Please see the chart General physical exam: Patient lying in bed, pleasant cooperative, feels tired and fatigued Head/eyes: Atraumatic, EOMI, PERRLA ENT: Moist mucous membranes, nasal passages clear Neck: Supple, full range of motion, trachea midline CVS: S1 + S2, regular rate and rhythm, no murmurs Respiratory: Bilaterally fair air entry in both lung valle, mild B/L crackles, symmetric chest expansion, no distress Abdomen: Soft, + mild given distension, +mild abdominal tenderness on palpation, bowel sounds +ve but hypoactive Extremities: No clubbing, no cyanosis, no edema, no calf tenderness Musculoskeletal: Moves all, adequate range of motion, no muscle spasms Skin: Warm, dry, no jaundice, no cyanosis Neurological: Awake, alert, oriented x 3, cranial nerves II-XII intact, no focal neurological deficits Psychiatric: Normal mood, non suicidal Objective Data Vital Signs Vital Signs: Vital Signs - 24 hr 05/24/23 16:00 05/24/23 16:52 05/24/23 18:05 Temperature 37.0 C Pulse Rate 105 H 88 79 Respiratory Rate 16 15 14 Blood Pressure 124/83 137/97 H 126/84 Pulse Oximetry 98 95 95 Oxygen Delivery Oxygen Flow Rate 05/24/23 19:08 05/24/23 16:55 05/24/23 17:00 Temperature Pulse Rate 91 89 Respiratory Rate 13 15 Blood Pressure 131/86
[2023-05-25] MEDS: amLODIPine BESYLATE 5 MG TABLET PO (20:45)
[2023-05-25] MEDS: ATORVASTATIN 20 MG TABLET PO (20:46)
[2023-05-25 22:00] VITALS: BP 101/73; PULSE 76; RESP 14; TEMP 36.6; O2SAT 96
[2023-05-25] MEDS: levoFLOXacin 750 MG/D5W 150 ML 750 MG/150 ML BAG 100 MG IVPB (22:11)
[2023-05-25] MEDS: SODIUM CHLORIDE 0.9% IV 1,000 ML 75 ML IV CONT (22:11)
[2023-05-26] MEDS: metroNIDAZOLE 500 MG/ISO 100ML 500 MG/100 ML BAG 100 MG IVPB ×2 (05:38→15:23)
[2023-05-26 06:00] VITALS: BP 107/71; PULSE 69; RESP 16; TEMP 36.4; O2SAT 94
[2023-05-26 07:18] LABS: Basophils Percent Auto 0.4 % (0.2-1.2); Eosinophils Absolute Auto 0.3 K/mm3 (0-0.3); Eosinophils Percent Auto 3.9 % (0-4.4); Hemoglobin 11.6 g/dL (14.0-18.0); Immature Granulocyte Absolute 0.05 K/mm3 (0.00-0.031); Immature Granulocyte Percent A 0.7 % (0-0.5); Lymphocytes Absolute Auto 1.73 K/mm3 (0.9-3.2); Lymphocytes Percent Auto 24.7 % (18.3-44.2); Mean Corpuscular HGB Conc 30.5 g/dl (32-36); Mean Corpuscular Hemoglobin 27.7 pg (26-34); Mean Corpuscular Volume 90.7 fl (80-100); Mean Platelet Volume 11.1 fl (7.4-10.4); Monocytes Absolute Auto 0.6 K/mm3 (0.1-0.6); Monocytes Percent Auto 8.2 % (2.6-8.5); Neutrophils Absolute Auto 4.3 K/mm3 (1.3-6.7); Neutrophils Percent Auto 62.1 % (45.5-73.1); Platelet Count Result 186 k/mm3 (150-375); Red Blood Count 4.19 M/mm3 (4.6-6.20); Red Cell Distribution Width 14.6 % (11.5-14.5)
[2023-05-26 07:32] LABS: Anion Gap 7 mmol/L (8-16); Blood Urea Nitrogen 15 mg/dL (9-20); Calcium 8.4 mg/dL (8.4-10.2); Carbon Dioxide 30 mmol/L (22-30); Chloride 102 mmol/L (98-107); Estimated CRCL calculation 137 ml/min; Estimated Glomerular Filt Rate > 60; Glucose 81 mg/dL (65-110); Phosphorus 3.3 mg/dL (2.5-4.5); Sodium 139 mmol/L (137-145)
[2023-05-26 08:00] VITALS: O2SAT 93
[2023-05-26] MEDS: POTASSIUM CHLORIDE INJ 40 MEQ in SODIUM CHLORIDE 0.9% IV 500 ML 130 MEQ IVPB (09:05)
--- NOTE | 2023-05-26 10:51 | PM.PNGS ---
Progress Note: A&P Assessment and Plan (1) Adynamic ileus: Code(s): K56.0 - Paralytic ileus Status: Acute Assessment and Plan: improving, will ADAT, replace K, OOB/IS Subjective Subjective Date/Time Seen: 05/26/23 10:51 Interval history: feels better, bonifacio clears, +liquid stools, flatus Review of Systems Review of Systems: All systems reviewed & are unremarkable except as noted in HPI and below Exam Const: General: cooperative, comfortable and no acute distress Resp: Auscultation: clear to auscultation bilaterally Cardio: Rate: regular rate Rhythm: regular rhythm GI: Inspection: normal to inspection, distended and no incisions GI Palp: No abdominal tenderness, Yes Soft to palpation, No Tenderness to palpation present (GI), No Guarding due to palpation present (GI) and No Rigid due to palpation Objective Data Vital Signs Vital Signs: Vital Signs - 24 hr 05/25/23 14:00 05/25/23 22:00 05/26/23 06:00 Temperature 36.5 C 36.6 C 36.4 C L Pulse Rate 76 76 69 Respiratory Rate 18 14 16 Blood Pressure 115/77 101/73 107/71 Pulse Oximetry 97 96 94 Oxygen Delivery 05/26/23 08:00 Temperature Pulse Rate Respiratory Rate Blood Pressure Pulse Oximetry 93 Oxygen Delivery Room Air Intake/Output Intake/Output: Intake & Output 05/23/23 05/24/23 05/25/23 05/26/23 23:59 23:59 23:59 23:59 Intake Total 2100 3390 218 Output Total 900 275 Balance 2100 2490 -57 Meds/Results Medications: Active Medications Generic Name Dose Route Start Last Admin Trade Name Freq PRN Reason Stop Dose Admin Amlodipine Besylate 5 mg 05/25/23 21:00 05/25/23 20:45 Amlodipine Besylate 5 Mg Tablet PO 5 mg HS CRISTIAN Administration Artificial Tears 1 drop 05/25/23 09:57 Artificial Tears Ophth Soln 15 Ml Bottle EACH EYE QID PRN Dry Eye(s) Atorvastatin Calcium 20 mg 05/25/23 21:00 05/25/23 20:46 Atorvastatin 20 Mg Tablet PO 20 mg HS CRISTIAN Administration Diphenhydramine HCl 12.5 mg 05/24/23 20:22 Diphenhydramine Hcl Inj 50 Mg/Ml Vial IV PUSH Q6H PRN Nausea And Vomiting Hydrochlorothiazide 12.5 mg 05/25/23 09:00 05/25/23 08:35 Hydrochlorothiazide 12.5 Mg Capsule PO 12.5 mg DAILY CRISTIAN Administration Metronidazole 500 mg in 100 mls @ 100 mls/hr 05/25/23 06:00 05/26/23 06:38 Flagyl 500 Mg/Iso Soln 100 Ml IVPB Infused Q8H CRISTIAN Infusion Levofloxacin/Dextrose 750 mg in 150 mls @ 100 mls/hr 05/25/23 22:00 05/25/23 23:41 Levaquin 750 Mg/D5w 150 Ml IVPB Infused Q24H CRISTIAN Infusion Sodium Chloride 1,000 mls @ 75 mls/hr 05/24/23 20:25 05/26/23 09:08 Normal Saline Iv IV CONT 0 mls/hr .[id number] CRISTIAN Infusion Potassium Chloride 40 meq/ 520 mls @ 130 mls/hr 05/26/23 09:00 05/26/23 09:05 Sodium Chloride IVPB 05/26/23 12:59 130 mls/hr ONCE ONE Administration Metoclopramide HCl 10 mg 05/24/23 20:22 Metoclopramide Hcl Inj 10 Mg/2 Ml Vial IV PUSH Q6H PRN Nausea And Vomiting Multivitamins/Minerals 1 tablet 05/25/23 09:00 05/26/23 08:19 Opti-Gen Tab PO Not Given DAILY [facility] Tramadol HCl 50 mg 05/25/23 05:05 Tramadol Hcl (*Crx) 50 Mg Tablet PO Q6H PRN pain Radiology Results: ITS Impressions Abdomen/Pelvis CT 05/24/23 19:05 IMPRESSION: 1. Extensive body wall gas. 2. Free intraperitoneal gas, consistent with recent surgery. 3. Small volume of ascites. 4. Multiple dilated loops of small bowel with wall thickening of some of the loops, consistent with enteritis and adynamic ileus. 5. Small volume of hematoma in the bladder. Labs Labs: Laboratory Results - last 24 hr 05/26/23 06:01 WBC 7.0 RBC 4.19 L Hgb 11.6 L Hct 38.0 L MCV 90.7 MCH 27.7 MCHC 30.5 L RDW 14.6 H Plt Count 186 MPV 11.1 H Immature Gran % (Auto) 0.7 H Neut % (Auto) 62.1 Lymph % (Auto) 24.7 [place] % (Auto) 8.2 Eos % (Auto) 3.9 Baso % (Auto) 0.4 Lymph # (Auto) 1.73
[2023-05-26 14:00] VITALS: BP 105/74; PULSE 83; RESP 18; TEMP 36.2; O2SAT 97
--- NOTE | 2023-05-26 14:01 | WPDUROPN2 ---
Progress Note: A&P Assessment and Plan (1) Adynamic ileus: Code(s): K56.0 - Paralytic ileus Status: Acute (2) Adenocarcinoma of prostate: Code(s): C61 - Malignant neoplasm of prostate Status: Acute Plan Ok for discharge from perspective Patient will need to start another abx on 05/29/23 (day prior to anticipated villagomez removal with Dr Ivey on 05/30/23) Dr Ivey will call in abx on Saturday Subjective Subjective Date/Time Seen: 05/26/23 14:01 Interval history: Admitted 2 days ago with adynamic ileus that has slowly resolved over the 2 past days. Tolerating regular diet today. Exam Narrative: NAD NCAT Breathing unlabored Abdomen soft Villagomez draining tea colored urine MAEW Objective Data Vital Signs Vital Signs: Vital Signs - 24 hr 05/25/23 22:00 05/26/23 06:00 05/26/23 08:00 Temperature 36.6 C 36.4 C L Pulse Rate 76 69 Respiratory Rate 14 16 Blood Pressure 101/73 107/71 Pulse Oximetry 96 94 93 Oxygen Delivery Room Air Intake/Output Intake/Output: Intake & Output 05/23/23 05/24/23 05/25/23 05/26/23 23:59 23:59 23:59 23:59 Intake Total 2100 3390 218 Output Total 900 475 Balance 2100 2672 -257 Meds/Results Medications: Active Medications Generic Name Dose Route Start Last Admin Trade Name Freq PRN Reason Stop Dose Admin Amlodipine Besylate 5 mg 05/25/23 21:00 05/25/23 20:45 Amlodipine Besylate 5 Mg Tablet PO 5 mg HS CRISTIAN Administration Artificial Tears 1 drop 05/25/23 09:57 Artificial Tears Ophth Soln 15 Ml Bottle EACH EYE QID PRN Dry Eye(s) Atorvastatin Calcium 20 mg 05/25/23 21:00 05/25/23 20:46 Atorvastatin 20 Mg Tablet PO 20 mg HS CRISTIAN Administration Diphenhydramine HCl 12.5 mg 05/24/23 20:22 Diphenhydramine Hcl Inj 50 Mg/Ml Vial IV PUSH Q6H PRN Nausea And Vomiting Hydrochlorothiazide 12.5 mg 05/25/23 09:00 05/25/23 08:35 Hydrochlorothiazide 12.5 Mg Capsule PO 12.5 mg DAILY CRISTIAN Administration Metronidazole 500 mg in 100 mls @ 100 mls/hr 05/25/23 06:00 05/26/23 06:38 Flagyl 500 Mg/Iso Soln 100 Ml IVPB Infused Q8H [facility]STIAN Infusion Levofloxacin/Dextrose 750 mg in 150 mls @ 100 mls/hr 05/25/23 22:00 05/25/23 23:41 Levaquin 750 Mg/D5w 150 Ml IVPB Infused Q24H CRISTIAN Infusion Sodium Chloride 1,000 mls @ 75 mls/hr 05/24/23 20:25 05/26/23 09:08 Normal Saline Iv IV CONT 0 mls/hr .[id number] CRISTIAN Infusion Metoclopramide HCl 10 mg 05/24/23 20:22 Metoclopramide Hcl Inj 10 Mg/2 Ml Vial IV PUSH Q6H PRN Nausea And Vomiting Multivitamins/Minerals 1 tablet 05/25/23 09:00 05/26/23 08:19 Opti-Gen Tab PO Not Given DAILY CRISTIAN Tramadol HCl 50 mg 05/25/23 05:05 Tramadol Hcl (*Crx) 50 Mg Tablet PO Q6H PRN pain Radiology Results: ITS Impressions Abdomen/Pelvis CT 05/24/23 19:05 IMPRESSION: 1. Extensive body wall gas. 2. Free intraperitoneal gas, consistent with recent surgery. 3. Small volume of ascites. 4. Multiple dilated loops of small bowel with wall thickening of some of the loops, consistent with enteritis and adynamic ileus. 5. Small volume of hematoma in the bladder. Labs Labs: Laboratory Results - last 24 hr 05/26/23 06:01 WBC 7.0 RBC 4.19 L Hgb 11.6 L Hct 38.0 L MCV 90.7 MCH 27.7 MCHC 30.5 L RDW 14.6 H Plt Count 186 MPV 11.1 H Immature Gran % (Auto) 0.7 H Neut % (Auto) 62.1 Lymph % (Auto) 24.7 [place] % (Auto) 8.2 Eos % (Auto) 3.9 Baso % (Auto) 0.4 Lymph # (Auto) 1.73 [place] # (Auto) 0.6 Eos # (Auto) 0.3 Baso # (Auto) 0.0 Abs Immat Gran (auto) 0.05 H Absolute Neuts (auto) 4.3 Absolute Nucleated RBC 0.0 Nucleated RBC % 0.0 Sodium 139 Potassium 3.0 L Chloride 102 Carbon Dioxide 30 Anion Gap 7 L BUN 15 Creatinine 0.70 Estim Creat Clear Calc 137 Estimated GFR > 60 Glucose 81 Calcium 8.4 Phosphorus 3.3 Magnesium 2.0
[2023-05-26 15:59] LABS: Potassium 3.1 mmol/L (3.4-5.0)
[2023-05-26] MEDS: POTASSIUM CHLORIDE 20 MEQ ER TABLET 40 MEQ PO (16:14)
--- NOTE | 2023-05-26 17:00 | PM.DS ---
DS: Admitting Diagnosis Discharge Date 05/26/2023: Admitting Diagnosis Adynamic ileus Postoperative nausea and vomiting DS: Discharge Diagnosis Discharge Diagnosis (1) Hypokalemia: Code(s): E87.6 - Hypokalemia Status: Acute (2) Adynamic ileus: Code(s): K56.0 - Paralytic ileus Status: Acute (3) Vomiting: Code(s): R11.10 - Vomiting, unspecified Status: Acute (4) Enteritis: Code(s): K52.9 - Noninfective gastroenteritis and colitis, unspecified Status: Acute (5) Ileus, postoperative: Code(s): K91.89 - Other postprocedural complications and disorders of digestive system; K56.7 - Ileus, unspecified Status: Acute DS: Summary Hospital Course Reason for hospitalization: Patient admitted with postoperative nausea and vomiting after robotic prostatectomy on 05/22/2023 Hospital Course: H&P: HPI History of Present Illness Date/Time: 05/24/23? 20:24 Chief Complaint: Weakness, nausea vomiting Narrative: Patient has history of prostatic adenocarcinoma cancer for which he got robotic prostatectomy on May 22, he stated surgery was prolonged.? After discharge patient has not been able to keep anything down, he vomited 8 x 2 days ago and ever since then hardly eat or drink, he denied diarrhea cough congestion sore throat or abdominal pain.? No fever.? Reported associated bloating, he passes gas.? He presented to a different ED yesterday where he was evaluated with no significant finding, he was rehydrated and discharged home however symptoms continued.? He formed he has urologist who recommended coming to the ED for subsequent evaluation.? Workup in the emergency department revealed the patient has adynamic ileus, colitis and extensive abdominal wall gas. Patient has been rehydrated, nausea has improved however still complain of weakness, no significant electrolyte imbalance and viral screen was negative. 05/25/2023: Continue with current medications Continue with IV antibiotics in the form of IV levofloxacin and metronidazole ...? Day 2 Continue with the IV hydration; decreased rate from 125 to 75 cc/hour Hold off on diuretics General surgery consultation reviewed and appreciated Started patient on clear liquid diet Advance diet slowly as Dr. Garcia Urology consult given for evaluation and top management recommendations DC planning to be considered in a.m. if he remains stable and cleared by specialists 05/26/2023: Patient is feeling better today. He had a large bowel movement today and passing flatus. His diet is advanced to heart healthy diet which he is tolerating well. Patient seen and evaluated by both General surgery and Urology who cleared him for discharge. Urology any antibiotics at discharge. Urology will call and start him on antibiotic on 05/29/23 prior to his postop visit for removal of villagomez catheter. His potassium was low at 3 this morning. Aggressive IV KCL 40 mEq replacement given this morning. Repeat potassium was low at 3.1. I ordered 40 mEq KCL x1 dose prior to discharge. His electrolytes should improve after he starts eating. Since he is on chronic diuretic, I will discharge him on oral potassium 20 mEq daily. I would request PCP to follow up on patient's labs, renal functions and electrolytes closely as an outpatient and adjust medications accordingly. Status at Discharge Functional status at discharge: independent ambulation Overall status at discharge: patient is progressing back to baseline Time Spent with Patient Time attestation: Total time spent providing and/or coordinating discharge services: Time spent: Greater than 30 minutes Exam Narrative: Vital signs: Please see the chart General physical exam:? Patient lying in bed, pleasant cooperative, feels tired and fatigued Head/eyes: Atraumatic, EOMI, PERRLA ENT: Moist mucous membranes, nasal passages clear Neck: Supple, full range of motion, trachea midline CVS: S1 + S2, regular rate
== END 2023-05-26 19:15 | disposition home or self-care (01) ==
LOC: ANHED 20:53 → ANH3MEDSUR 21:23
PROVIDERS: Admitting Provider Student in an Organized Health Care Education/Training Program; Emergency Provider Emergency Medicine; PCP Nurse Practitioner Family; Visit Provider Family Medicine
DX: K56.0 Paralytic ileus (principal); K52.9 Noninfective gastroenteritis and colitis, unspecified; K91.89 Other postprocedural complications and disorders of digestive system; E87.6 Hypokalemia; N39.0 Urinary tract infection, site not specified; C61 Malignant neoplasm of prostate; Z96.0 Presence of urogenital implants; Z20.822 Contact with and (suspected) exposure to COVID-19; Z90.79 Acquired absence of other genital organ(s); Z85.46 Personal history of malignant neoplasm of prostate; Z79.891 Long term (current) use of opiate analgesic; Z79.899 Other long term (current) drug therapy
CPT/HCPCS: 36415; 74177; 80048; 80053; 81001; 83605; 83690; 83735; 84100; 84132; 85025; 87040; 87086; 87637; 96361; 96365; 96366; 96367; 99285; A9270; G0378; J1836; J1956; J3480; J7030; J7040; Q9967

== ENCOUNTER 2023-05-30 11:35 | Outpatient (CLI) | payer OTHER, SELFPAY ==
--- NOTE | ~2023-05-30 | XR_ITS ---
EXAMINATION: XR cystogram DATE: 05/30/2023 12:18 INDICATION: Prostate cancer status post prostatectomy. TECHNIQUE: Water-soluble contrast was gravity-infused through the patient's Phipps catheter. Multiple fluoroscopic images were obtained. Fluoroscopy exposure time was 0.3 minutes. The total number of kayla ges was 10. COMPARISON: CT abdomen pelvis 05/24/2023 FINDINGS: There is no extraluminal leakage of contrast. No ureteral reflux. IMPRESSION: 1. No extraluminal leakage of contrast. Reviewed, dictated and finalized at location A. [employer]
== END 2023-05-30 11:36 | disposition home or self-care (01) ==
PROVIDERS: PCP Nurse Practitioner Family; Visit Provider Urology
DX: C61 Malignant neoplasm of prostate (principal); Z90.79 Acquired absence of other genital organ(s)
CPT/HCPCS: 51600; 74430; Q9967

== ENCOUNTER 2024-04-09 07:36 | Emergency (ER) | payer OTHER, SELFPAY ==
--- NOTE | ~2024-04-09 | CT_ITS ---
EXAMINATION: CTA chest DATE: 04/09/2024 09:13 INDICATION: Chest and left shoulder and back pain. TECHNIQUE: Computed tomographic angiography (CTA) of the chest was performed with 100 mL Omnipaque-35 0 intravenous contrast. Volume-rendered 3D-reconstructions of the aorta and large arteries were const ructed by the technologist on a separate workstation. Automated exposure control and iterative recons truction technique were employed. The dose-length product was 819.59 mGy-cm. COMPARISON: None. FINDINGS: 3.2 x 1.7 cm with 6 mm satellite nodule in the right middle lobe as for primary prostate carcinoma. T here are additional nodules versus lymph nodes extending centrally towards the right hilum suspicious for metastatic disease. Bilateral dependent and basilar predominant atelectasis primarily in the low er lobes. No pulmonary edema or pleural effusion. Heart size is normal. No pericardial effusion. Thor acic aorta is normal in caliber with no dissection. Splenomegaly measuring up to 21.3 x 15.0 cm in tr ansaxial dimensions. There are multiple mass with heterogeneous attenuation in the spleen is enlarged measuring up to 7.2 cm which are concerning for malignancy either lymphoma or metastatic disease. In filtrating retroperitoneal soft tissue posterior to the pancreas extending from the splenic hilum jason rounding the accessory left hepatic artery arising from the celiac axis likely representing in places confluent metastatic lymphadenopathy. 4 cm cyst at the upper pole the right kidney. It is mild to mo derate thoracic spondylosis. IMPRESSION: 1. 3.2 x 1.7 cm right middle lobe mass suspicious for primary prostate carcinoma with small satellite nodule, right hilar lymphadenopathy, upper abdominal retroperitoneal lymphadenopathy and splenomegal y with multiple splenic masses are all suspicious for metastatic disease. Would consider CT-guided bi opsy of one of the left para aortic masses for further evaluation. 2. Normal thoracic aorta with no aneurysm or dissection. 2. Small lung volumes with bilateral dependent and basilar predominant atelectasis. No other acute ca rdiopulmonary disease. Reviewed, dictated and finalized at location A. ITY APPRAISER IMPRESSION: 1. 3.2 x 1.7 cm right middle lobe mass suspicious for primary prostate carcinom a with small satellite nodule, right hilar lymphadenopathy, upper abdominal ret roperitoneal lymphadenopathy and splenomegaly with multiple splenic masses are all suspicious for metastatic disease. Would consider CT-guided biopsy of one o f the left para aortic masses for further evaluation. 2. Normal thoracic aorta with no aneurysm or dissection. 2. Small lung volumes with bilateral dependent and basilar predominant atelecta sis. No other acute cardiopulmonary disease.
--- NOTE | ~2024-04-09 | CT_ITS ---
CT of the Abdomen and Pelvis: Indication: Small bowel obstruction Technique: 2.5 mm axial scans were obtained through the abdomen and pelvis following intravenous adm inistration of 100 cc of Omnipaque 350. Dose reduction technique was used on this scan by utilizing a utomated exposure control and iterative reconstruction technique. The dose-length product (DLP) was 1 361.39 mGy-cm. COMPARISON: 05/24/2023 Findings: Scans through the lung bases demonstrate mild bibasilar atelectatic changes. Interval development of splenomegaly, with spleen measuring 20.5 cm in AP dimension, and up to 18 cm in craniocaudal extent. There are multiple low-density masses throughout the spleen, largest anterior ly measuring 7.6 cm in diameter. The liver, pancreas, gallbladder, adrenals and kidneys are within no rmal limits. No evidence of aortic aneurysm. There is somewhat ill-defined lymphadenopathy in the re troperitoneum/periaortic region, new from prior exam, with largest hector lesion measuring approximate ly 3.5 x 2.8 cm (axial image 86).. No bowel obstruction or bowel wall thickening. There is no evidence to suggest acute appendicitis. Images through the pelvis were performed. Urinary bladder unremarkable. Trace free fluid present in t he pelvis. Status post prostatectomy. There are bilateral L5 pars interarticularis defects, with grad e 1 anterolisthesis of L5 over S1. Impression: Interval development of prominent splenomegaly with multiple splenic mass is present, largest measuri ng 7.6 cm. Findings are suspicious for lymphomatous involvement of the spleen versus possibly other n eoplastic disease. Interval development of para-aortic lymphadenopathy, also suspicious for lymphoma versus possibly oth er metastatic disease. Reviewed, dictated and finalized at [facility]. NSED MASSAGE THERAPIST Impression: Interval development of prominent splenomegaly with multiple splenic mass is pr esent, largest measuring 7.6 cm. Findings are suspicious for lymphomatous invol vement of the spleen versus possibly other neoplastic disease. Interval development of para-aortic lymphadenopathy, also suspicious for lympho ma versus possibly other metastatic disease.
[2024-04-09 08:08] LABS: Add Urine Microscopic? NO; Appearance Urine Clear (Clear); Basophils Percent Auto 0.3 % (0.2-1.2); Bilirubin Urine Negative (Negative); Blood Urine Negative (Negative); Color Urine Yellow (Yellow); Eosinophils Absolute Auto 0.1 K/mm3 (0-0.3); Eosinophils Percent Auto 1.6 % (0-4.4); Glucose Urine UA Negative (Negative); Hemoglobin 13.7 g/dL (14.0-18.0); Immature Granulocyte Absolute 0.03 K/mm3 (0.00-0.031); Immature Granulocyte Percent A 0.4 % (0-0.5); Immature Platelet Fraction Pct 5.8 % (0.9-11.2); Ketones Urine Negative (Negative); Leukocyte Esterase Ur Negative LEU/UL (Negative); Lymphocytes Percent Auto 17.1 % (18.3-44.2); Mean Corpuscular HGB Conc 31.9 g/dl (32-36); Mean Corpuscular Hemoglobin 27.1 pg (26-34); Mean Platelet Volume 10.4 fl (7.4-10.4); Monocytes Absolute Auto 0.6 K/mm3 (0.1-0.6); Monocytes Percent Auto 8.7 % (2.6-8.5); Neutrophils Percent Auto 71.9 % (45.5-73.1); Nitrate Urine Negative (Negative); Platelet Count Result 104 k/mm3 (150-375); Protein Urine Negative (Negative); Red Blood Count 5.06 M/mm3 (4.6-6.20); Red Cell Distribution Width 13.1 % (11.5-14.5); Specific Grav Ur 1.015 (1.001-1.035); Urobilinogen Urine 0.2 mg/dL (<2.0)
[2024-04-09 08:09] VITALS: BP 123/93; PULSE 97; RESP 18; TEMP 37.1; O2SAT 98
[2024-04-09 08:16] LABS: Alanine Aminotransferase 15 U/L (6-50); Albumin Level 4.6 g/dL (3.5-5.1); Alkaline Phosphatase 100 U/L (38-126); Anion Gap 7 mmol/L (4-12); Aspartate Amino Transferase 22 U/L (17-59); Blood Urea Nitrogen 12 mg/dL (9-20); Calcium 9.8 mg/dL (8.4-10.2); Carbon Dioxide 30 mmol/L (22-30); Chloride 103 mmol/L (98-107); Estimated CRCL calculation 111 ml/min; Estimated Glomerular Filt Rate > 60; Glucose 110 mg/dL (65-110); Potassium 3.9 mmol/L (3.4-5.0); Sodium 140 mmol/L (137-145)
--- NOTE | 2024-04-09 08:56 | ECG_ITS ---
Test Date: 2024-04-09 09:30:56 Measurements Intervals [place] Rate: 84 P: 17 NC: 164 QRS: 27 QRSD: 97 T: 39 QT: 357 QTc: 424 Interpretive Statements SINUS RHYTHM No previous ECG available for comparison Electronically Signed On 04-09-2024 15:54:10 [facility] by Laura Lu
[2024-04-09 09:00] VITALS: BP 147/102; PULSE 98; RESP 16; O2SAT 100
--- NOTE | 2024-04-09 09:55 | ED_ITS ---
HPI - Abdominal Pain General Chief Complaint: Abdominal Pain Stated Complaint: abd pain, flank pain Time Seen by Provider: 04/09/24 07:49 History of Present Illness HPI narrative: For the last 2 months patient has had bloating, abdominal discomfort, slight nausea. Has had history of ileus in the past. Related Data Home Medications ?Medication ?Instructions ?Recorded ?Confirmed ?Last Taken ?Type amlodipine 5 mg tablet 5 mg HS 05/09/23 05/24/23 05/23/23 History atorvastatin 20 mg tablet 20 mg 05/09/23 05/24/23 05/23/23 History hydrochlorothiazide 12.5 mg tablet 12.5 mg PO DAILY 05/09/23 05/24/23 05/23/23 History tgbjuwpv-vj-alygu 300 mcg-K 60 1 tablet PO DAILY 05/09/23 05/24/23 05/14/23 History mcg-lycop 600 mcg-lutein 300 mcg tablet (Centrum Silver Men) Allergies Allergy/AdvReac Type Severity Reaction Status Date / Time No Known Allergies Allergy Verified 04/09/24 08:18 Review of Systems 2 Review of Systems: All systems reviewed & are unremarkable except as noted in HPI and below PMFSH Family History Family History Father Malignant neoplasm of prostate Esophageal cancer Sibling Malignant neoplasm of prostate Basal cell carcinoma Mother Hypertension Basal cell carcinoma Other Stomach cancer paternal uncle Social History Social History Smoking status: Never smoker Second hand tobacco smoke exposure: No Alcohol intake: current Drinks per week: 1 Substance use: never Substance use type: does not use Do You Feel Safe in your Home?: Yes Lack of Transportation: No Lack of Food: Never True Current Housing: I Have Housing Concerned About Future Housing: No Difficulty Paying Gas/Electric Bills: No Difficulty Paying for Meds: No Currently Unemployed: No Education: Bachelor's Degree Difficulty w/ Childcare or Family Care: No Living arrangements: with family Spiritual care concerns: No Exam 2 Narrative: EXAMINATION OF ORGAN SYSTEMS/BODY AREAS: Constitutional: Vital signs per nursing GENERAL:[No acute distress, non-toxic appearing.] HEAD: Normal with no signs of head trauma. EYES: EOMI, conjunctiva normal ENT: Hearing grossly intact LUNGS: Nonlabored breathing. HEART: [Regular rate and rhythm] ABD: [Soft], [nontender to palpation] EXT: Normal range of motion SKIN: [No rashes or lesions.] NEURO: [Alert and oriented x 3. No gross focal sensory or strength deficits.] PSYCH: Normal affect Course Vital Signs Vital signs: Vital Signs Temperature 98.7 F 04/09/24 08:09 Pulse Rate 97 04/09/24 08:09 Respiratory Rate 18 04/09/24 08:09 Blood Pressure 123/93 H 04/09/24 08:09 Pulse Oximetry 98 04/09/24 08:09 Oxygen Delivery Room Air 04/09/24 08:09 Temperature 98.7 F 04/09/24 08:09 Pulse Rate 97 04/09/24 11:00 Respiratory Rate 16 04/09/24 11:00 Blood Pressure 149/94 H 04/09/24 11:00 Pulse Oximetry 100 04/09/24 11:00 Oxygen Delivery Room Air 04/09/24 08:09 MDM - Abdominal Pain MDM Narrative Medical decision making narrative: patient presents with several weeks of abdominal bloating and discomfort, differential includes SBO, diverticulitis, kidney stone, etc.. CT abdomen/ pelvis unfortunately is showing splenomegaly and splenic masses and lymphadenopathy concerning for possible malignancy. patient states he does have history of aneurysm so I did obtain a CTA chest also. This unfortunately is showing likely pulmonary mass from prostate cancer. discussed with patient, he does state that he had prostate cancer but had a prostatectomy in Apr and was told he had a clean margin, and recent negative PET scan. Long discussion with patient regarding findings and unfortunate concern for metastasis, I did also speak with Oncology Dr. Solano who will try to have patient in his clinic within 1 week for close follow-up, requested PSA done here. Return precautions discussed. Lab Data 04/09/24 08:01 04/09/24 08:01 Labs: Lab Results 04/09/24 04/09/24 Range/Units 08:01 11:09 WBC 7.0 (4.5-10.0) K/mm3 RBC 5.06 (4.6-6.20) M/mm3 Hgb 13.7 L (14.0-18.0) g/dL Hct 43.0 (42.0-52.0) % MCV 85.0 (80-100) fl MCH 27.1 (26-34) pg MCHC 31.9 L (32-36) g/dl RDW 13.1 (11.5-14.5) % Plt Count 104 L (150-375) k/mm3 MPV 10.4 (7.4-10.4) fl Immature Gran % (Auto) 0.4 (0-0.5) % Neut % (Auto) 71.9 (45.5-73.1) % Lymph % (Auto) 17.1 L (18.3-44.2) % [place] % (Auto) 8.7 H (2.6-8.5) % Eos % (Auto) 1.6 (0-4.4) % Baso % (Auto) 0.3 (0.2-1.2) % Lymph # (Auto) 1.20 (0.9-3.2) K/mm3 [place] # (Auto) 0.6 (0.1-0.6) K/mm3 Eos # (Auto) 0.1 (0-0.3) K/mm3 Baso # (Auto) 0.0 (0.0-0.1) K/mm3 Abs Immat Gran (auto) 0.03 (0.00-0.031) K/mm3 Absolute Neuts (auto) 5.0 (1.3-6.7) K/mm3 Absolute Nucleated RBC 0.000 (0.0-0.012) K/mm3 Nucleated RBC % 0.0 (0.0-0.2) % % Immature Plt Fraction 5.8 (0.9-11.2) % Sodium 140 (137-145) mmol/L Potassium 3.9 (3.4-5.0) mmol/L Chloride 103 (98-107) mmol/L Carbon Dioxide 30 (22-30) mmol/L Anion Gap 7 (4-12) mmol/L BUN 12 (9-20) mg/dL Creatinine 0.90 (0.7-1.3) mg/dL Estim Creat Clear Calc 111 ml/min Estimated GFR > 60 (59 - ) Glucose 110 (65-110) mg/dL Calcium 9.8 (8.4-10.2) mg/dL Total Bilirubin 1.0 (0.2-1.3) mg/dL AST 22 (17-59) U/L ALT 15 (6-50) U/L Alkaline Phosphatase 100 (38-126) U/L Troponin I < 0.012 (0.000-0.034) ng/mL Total Protein 8.0 (6.3-8.2) g/dL Albumin 4.6 (3.5-5.1) g/dL Free PSA Pending % Free PSA Pending Total PSA Pending Urine Color Yellow (Yellow) Urine Appearance Clear (Clear) Urine pH 6.0 (5.0-9.0) Ur Specific [place] 1.015 (1.001-1.035) Urine Protein Negative (Negative) mg/dL Urine Glucose (UA) Negative (Negative) mg/dL Urine Ketones Negative (Negative) mg/dL Ur Blood (Man) Negative (Negative) Urine Nitrate Negative (Negative) Urine Bilirubin Negative (Negative) Urine Urobilinogen 0.2 (<2.0) mg/dL Leukocyte Esterase Rfl Negative (Negative) VIKA/UL Imaging Data Radiologist's impression: ITS Impressions Abdomen/Pelvis CT 04/09/24 08:39 Impression: Interval development of prominent splenomegaly with multiple splenic mass is present, largest measuring 7.6 cm. Findings are suspicious for lymphomatous involvement of the spleen versus possibly other neoplastic disease. Interval development of para-aortic lymphadenopathy, also suspicious for lymphoma versus possibly other metastatic disease. Chest CTA 04/09/24 09:43 IMPRESSION: 1. 3.2 x 1.7 cm right middle lobe mass suspicious for primary prostate carcinoma with small satellite nodule, right hilar lymphadenopathy, upper abdominal retroperitoneal lymphadenopathy and splenomegaly with multiple splenic masses are all suspicious for metastatic disease. Would consider CT-guided biopsy of one of the left para aortic masses for further evaluation. 2. Normal thoracic aorta with no aneurysm or dissection. 2. Small lung volumes with bilateral dependent and basilar predominant atelectasis. No other acute cardiopulmonary disease. Discharge Plan Discharge Clinical Impression: Abdominal bloating, Splenic mass, Suspected malignant neoplasm Patient Disposition: Home, Self-Care Condition: Stable Instructions: Abdominal Pain (ED) Additional Instructions: Unfortunately on your CT scan today it does appear there is a chance that the prostate cancer may have spread to your lungs, lymph nodes, and spleen. please make an appointment with the oncologist/ cancer doctor, call to let them know that you need an appointment within 1 week. Please come back to the ER immediately if you have any worsening or concerning issues. Patient Language: Bahraini Prescriptions: New dicyclomine 20 mg tablet 20 mg PO TID PRN (Reason: abdominal pain) Qty: 30 0RF polyethylene glycol 3350 [Miralax] 17 gram/dose powder 17 g PO DAILY Qty: 238 0RF alum-mag hydroxide-simeth [Maalox Advanced] 200-200-20 mg/5 mL suspension 10 ml PO QID PRN (Reason: dyspepsia) Qty: 300 0RF Rx Instructions: administer between meals and at bedtime oxycodone 5 mg capsule 5 mg PO Q8H PRN (Reason: pain) Qty: 10 0RF famotidine 20 mg tablet 20 mg PO DAILY Qty: 30 0RF ondansetron 4 mg tablet,disintegrating 4 mg PO Q8H PRN (Reason: nausea and vomiting) Qty: 10 0RF No Action atorvastatin 20 mg tablet 20 mg HS amlodipine 5 mg tablet 5 mg HS hydrochlorothiazide 12.5 mg tablet 12.5 mg PO DAILY Centrum Silver Men [phone] mcg Tablet 1 tablet PO DAILY tramadol 50 mg tablet 50 mg PO Q6H PRN (Reason: pain) Qty: 20 0RF potassium chloride [K-Tab] 20 mEq tablet extended release 20 meq PO DAILY Qty: 30 0RF Follow-up/Referrals: Aristeo Solano MD [Physician] - 2 Days (new diagnosis metastatic prostate cancer; h/o prostatectomy in ) Cem Ivey MD [Physician] - 2 Days UNKNOWN,DOCTOR [Primary Care Provider] -
[2024-04-09 10:33] LABS: Troponin I < 0.012 ng/mL (0.000-0.034)
[2024-04-09 11:00] VITALS: BP 149/94; PULSE 97; RESP 16; O2SAT 100
[2024-04-09] MEDS: MAG HYDROX/AL HYDROX/SIMETH 30 ML UDC PO (11:09)
[2024-04-13 13:33] LABS: PSA, Free <0.1 ng/mL; PSA, Total <0.1 ng/mL (< OR = 4.0); Percent Free Prostate Spec Ag UNABLE TO CALCULATE % (calc) (>25)
== END 2024-04-09 11:00 | disposition home or self-care (01) ==
PROVIDERS: Emergency Provider Emergency Medicine
DX: R14.0 Abdominal distension (gaseous) (principal); D73.9 Disease of spleen, unspecified; Z85.46 Personal history of malignant neoplasm of prostate; Z90.79 Acquired absence of other genital organ(s)
CPT/HCPCS: 36415; 71275; 74177; 80053; 81003; 84153; 84154; 84484; 85025; 85055; 93005; 99284; A9270; Q9967

== ENCOUNTER 2025-02-15 08:26 | Outpatient (CLI) | payer OTHER, SELFPAY ==
--- NOTE | ~2025-02-15 | CT_ITS ---
Exam: CT chest, abdomen and pelvis with contrast Clinical History: [Gross hematuria ] Comparison: [ CT abdomen pelvis 04/09/2024] Technique: Multiple axial CT images of the chest, abdomen and pelvis were obtained with IV contrast. Sagittal and coronal reformatted images were obtained. FINDINGS: Lungs and pleura: [ Small opacities in the lower lungs.] Mediastinum and pulmonary simran: [ No mass or adenopathy.] Axillary/intramammary and supraclavicular: [ No mass or adenopathy.] Heart and great vessels: [ Normal heart size.[ [ No pericardial effusion.] [ No aneurysm.] Chest Wall: [ Unremarkable.] Liver: [ No mass.] [ No intrahepatic biliary duct dilatation.] Gallbladder: [ No wall thickening or stones.] Common bile duct: [ Normal caliber.] [ No stones.] Spleen: Indeterminate 2.5 x 4.1 cm hypoechoic mass in the spleen. Pancreas: [ No mass. No pancreatic fluid collection.] Adrenals: [ No masses.] Kidneys: [ No masses. No hydronephrosis.][ There is a 4.3 cm right renal cyst. There is a too small to characterize low-attenuation lesion in the left kidney. Too small to characterize low-attenuation lesions in the right kidney.] No renal calculi. Lymph nodes: [ No adenopathy in the abdomen or pelvis.] Stomach, small bowel and colon: [ No bowel wall thickening or obstruction.] Peritoneum cavity: [ No mesenteric fat stranding or fluid.] Bladder: No bladder calculi. Bladder is grossly unremarkable. Osseous structures: Bilateral pars defects at the L5 level causing grade 1/2 anterolisthesis of L5 on S1. Abdominal aorta: [ No aneurysm.] Additional findings: Small fat-containing umbilical hernia. IMPRESSION: 1. No CT evidence for renal, ureteral or bladder calculi. No renal mass or bladder mass identified. 2. Indeterminate 2.5 x 4.1 cm hypoechoic mass in the spleen. A PET/CT is recommended. 3. Bilateral pars defects at the L5 level causing grade 1/2 anterolisthesis of L5 on S1. Reviewed, dictated and finalized at location . IMPRESSION: 1. No CT evidence for renal, ureteral or bladder calculi. No renal mass or blad wander mass identified. 2. Indeterminate 2.5 x 4.1 cm hypoechoic mass in the spleen. A PET/CT is recomm ended. 3. Bilateral pars defects at the L5 level causing grade 1/2 anterolisthesis of L5 on S1.
--- OUTSIDE RECORDS SUMMARY | 2025-02-15 08:43 | XMS_ITS ---
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 05/07/2024 Lymphadenopathy, abdominal 04/16/2024 Splenomegaly 04/16/2024 Hypertension Current Treatment and Therapy Plans [facility]: Juliocesar-R-CHP (Polatuzumab Vedotin- piiq/CycloPHOSphamide/DOXOrubicin/PredniSONE) + RiTUXimab - 21 Day Cycle - Diffuse Large B-Cell Lymphoma* Plan Start Date:05/17/2024 Plan Provider:Forrest Yang MD Linked Problems 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 Automatically Discontinued - Inactive Plan Forrest Yang MD 1 of 1 cycle started ONCOLOGY SUPPORTIVE CARE Plan Name Start Date Discontinue Date Treatment Medications Discontinue Reason Plan Provider Cycles SUPPORT - HYDRATION WITH ADDITIVES - [facility] 5 02/01/2025 No medications scheduled. Automatically Discontinued - Inactive Plan Forrest Yang MD 5 of 5 cycles started ONCOLOGY TREATMENT Plan Name Start Date Discontinue Date Treatment Medications Discontinue Reason Plan Provider Cycles DLBCL - DOSE ADJUSTED R-EPOCH FOR DIFFUSE LARGE B-CELL LYMPHOMA - [facility] 05/18/19 25 05/15/2024 cyclophosphamide in ns chemo infusionDOXOrubicin with etoposide and vinCRIStine chemo infusionriTUXimab-ARR X (Riabni) infusion Therapy Complete Forrest Yang MD Treatment not started Lifetime Dose Tracking * Chemical Lifetime Dose Automatic Entry Manual Entr y Doxorubicin 342.843 mg/m2 (868 mg) 342.843 mg/m2 (868 mg) 0 mg/m2 (0 mg) Cyclophosphamide 4,401.604 mg/m2 (11, 160 mg) 4,401.604 mg/m2 (11,160 mg) 0 mg/m2 (0 mg)
--- OUTSIDE RECORDS SUMMARY | 2025-02-15 08:43 | XMS_ITS | Clinical Summary ---
Author Organization [facility] Address [address], [address] [place] [address] Phone Care Team Providers Care Design Sales Consultant Name Role Phone Ford Putnam DO Primary Care Provider [phone] Forrest Yang MD Unavailable [phone] Allergies No known active allergies Medications amLODIPine (NORVASC) 5 MG Tablet Take 5 mg by mouth daily. 02/12/20 24 Active atorvastatin (LIPITOR) 20 MG Tablet TAKE 1 TABLET(20 MG) BY MOUTH EVERY NIGHT AT BEDTIME 10/07/19 24 Active losartan (COZAAR) 25 MG Tablet Take 25 mg by mouth daily. 02/12/20 24 Active Tadalafil 5 MG Tablet TAKE 1 TO 4 TABLETS BY MOUTH ONCE DAILY NEEDED Active Levocetirizine Dihydrochloride (Xyzal Allergy 24HR) 5 MG Tablet Take 1 Tablet by mouth daily. Active oxyCODONE (ROXICODONE) 5 MG Tablet Take 5 mg by mouth. 04/29/19 25 Active ondansetron (ZOFRAN) 4 MG TabletIndications:D iffuse large B-cell lymphoma of intrathoracic lymph nodes Take 1 Tablet by mouth every 6 hours as needed for Nausea - 1st line. 40 Tablet 3 05/18/19 25 Active Additional Information Patient not taking.Reported on 11/27/2024 prochlorperazine (COMPAZINE) 10 MG TabletIndications:D iffuse large B-cell lymphoma of intrathoracic lymph nodes Take 1 Tablet by mouth every 4 hours as needed for Nausea - 2nd line. 40 Tablet 3 05/18/19 25 Active Additional Information Patient not taking.Reported on 11/27/2024 predniSONE (DELTASONE) 50 MG Tablet PLEASE SEE ATTACHED FOR DETAILED DIRECTIONS 06/05/19 25 Active allopurinol (ZYLOPRIM) 300 MG Tablet TAKE 1 TABLET BY MOUTH EVERY DAY FOR 2 WEEKS 05/31/19 25 Active Udenyca 6 MG/0.6ML Solution Prefilled Syringe 06/30/19 25 Active gabapentin (NEURONTIN) 600 MG Tablet 08/07/19 25 Active pantoprazole (PROTONIX) 20 MG Tablet Delayed Response TAKE 1 TABLET BY MOUTH EVERY DAY 30 Tablet 2 08/25/19 25 Active Active Problems Problem Noted Date Diagnosed Date Elevated blood pressure reading 05/15/2024 Diffuse large B-cell 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 05/07/2024 Lymphadenopathy, abdominal 04/16/2024 Splenomegaly 04/16/2024 Hypertension Encounters Date Type Department Care Team Description 11/27/2024 9:45 AM CDT Lab [facility] [address] [address] Lab, [facility] 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 11/27/2024 9:00 AM CDT Office Visit [facility] [address] [address] Forrest Yang MD 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 (Primary Dx) 11/27/2024 8:00 AM CDT Ancillary Procedure [facility] [address] [address] 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 11/27/2024 Travel from Last 3 Months Immunizations Immunization Administration Dates Next Due Influenza Vaccine, Quadrivalent, PF 03/07/2022,1 Family History Medical History Relation Name Comments Diabetes Brother Prostate Cancer Brother Esophageal Cancer Father Prostate Cancer Father Hypertension Mother IBS (irritable bowel syndrome) Mother Relation Name Status Comments Brother Father Mother Social History Tobacco Use Types Packs/Day Years Used Date Smoking Tobacco: Never Smokeless Tobacco: Never Tobacco Cessation:Counseling Given: Not Answered Alcohol Use Standard Drinks/Week Comments Yes 0 (1 standard drink = 0.6 oz pur e alcohol) rarely Sex and Gender Information Value Date Recorded Sex Assigned at Not on file Legal 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 Gender Identity Not on file Sexual Orientation Not on file Last Filed Vital Signs Vital Sign Reading Time Taken Comments Blood Pressure 108/80 11/27/2024 9:19 AM CDT Pulse 68 11/27/2024 9:19 AM CDT Temperature 36.6 C (97.8 F) 11/27/2024 9:19 AM CDT Respiratory Rate 18 11/27/2024 9:19 AM CDT Oxygen Saturation 98% 11/27/2024 9:19 AM CDT Inhaled Oxygen Concentration - - Weight 130.4 kg (287 lb 6.4 oz) 11/27/2024 9:19 AM CDT Height 190.5 cm (6' 3) 11/27/2024 9:19 AM CDT Body Mass Index 35.92 11/27/2024 9:19 AM CDT Plan of Treatment Upcoming Encounters Date Type Department Care Team (Late st Contact Info) Description 02/26/2025 9:15 AM CDT Office [facility] [address] [address] Forrest Yang MD [address] [facility] [address] [place] [address] [place] [id number] Health Maintenance Due Date Last Done Comments Hepatitis C Virus (HCV) Screening 1965 TdaP Immunization 1966 Hepatitis B Immunization (1 of 3 - 19+ 3-dose series) 1985 Pneumococcal Immunization (5 0+ years) (1 of 2 - PCV) 1985 Zoster Immunization (1 of 2) 1985 Cologuard 12/06/2011 Immunochemical Fecal Occult Blood 12/06/2011 Influenza Immunization (#1) 2024 11/0 12/2021, 02/01/2020 SARS-COV-2 Immunization ( season) 2024 05/04/2021, 08/09/2020, 07/15/2020 Colonoscopy 04/12/2031 04/12/2021, 03/13/2021, 03/12/2021 Colorectal Cancer Screening 04/12/2031 Respiratory Syncytial Virus (RSV) Immunization (Adult) (1 - 1-dose 75+ series) 2041 PSA Discussion Discontinued 04/16/2024 Human Papillomavirus (HPV) Immunization Aged Out No longer eligible based on patient's age to complete this topic Meningococcal Immunization (ACWY) Aged Out No longer eligible based on patient's age to complete this topic Rotavirus Immunization Aged Out No lo nger eligible based on patient's age to complete this topic Procedures Procedure Name Priority Date/Time Associated Diagnosis Comments PET CT TUMOR IMAGING SKULL BASE TO MID THIGH Routine 11/27/2024 10:01 AM CDT 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 CBC WITH AUTO DIFF OH Routine 11/27/2024 9:39 AM CDT LACTATE DEHYDROGENASE (LD) Routine 11/27/2024 9:39 AM CDT 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 CMP (COMPREHENSIVE METABOLIC PANEL) Routine 11/27/2024 9:39 AM CDT 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 History of prostate cancer status post prostatectomy. Currently undergoing treatment. Restaging and subsequent treatment planning. COMPARISON: PET-CT 07/09/2024 as well as exams dating back to 04/24/2024. TECHNIQUE: Following the intravenous administration of 11.65 millicurie F 18 FDG and 100 cc iodinated contrast PET-CT was performed from the skull vertex to the mid thighs. Multiplanar and MIP reconstructions were created. Serum glucose 102 mg/dL. A dose lowering technique was used for this procedure, which may include, but is not limited to, dose reduction technique(s), automated exposure control techniques, use of iterative reconstruction techniques, and ALARA (as low as reasonably achievable) or ALARA/IMAGE Gently techniques. FINDINGS: Head and neck: Intracranial: No mass, mass effect, or worrisome activity is appreciated. Extracranial: No mass or worrisome activity is appreciated. Chest: Cardiovascular: Right chest wall [id number]. Normal heart size. No significant pericardial effusion. The thoracic aorta is normal in caliber. Pulmonary: Elevation of the right hemidiaphragm with compressive atelectasis of the right lung base. No worrisome pulmonary nodules or activity are appreciated. Lymphatics: No hypermetabolic lymphadenopathy is identified in the chest. Abdomen and pelvis: Hepatobiliary: Probable mildly heterogeneous hepatic parenchymal activity again noted. No convincing worrisome hepatic or pancreatic activity is noted. Gallbladder appears unremarkable. No significant biliary ductal dilatation is noted. : The adrenal glands are unremarkable. Bilateral renal cysts are redemonstrated. No hydronephrosis. The urinary bladder is not well distended though appears unremarkable. Status post radical prostatectomy without worrisome nodularity or activity appreciated at the prostatectomy bed to suggest local recurrence of malignancy. GI: Mild long segment circumferential rectal wall thickening again noted without worrisome activity, potentially treatment related. Colonic diverticulosis without evidence of acute diverticulitis. The appendix is unremarkable. Probable physiologic activity of the stomach and small bowel. No free intraperitoneal fluid or air is appreciated. No hypermetabolic peritoneal nodules are noted. Lymphatics: There is splenomegaly though the spleen has decreased in size. Hypoattenuating splenic lesions have decreased in size as well. No worrisome splenic activity is noted. Prominent periaortic lymph nodes have further decreased in size, not hypermetabolic. Ill-defined soft tissue attenuation of the retroperitoneum above the level of the celiac axis is less pronounced as well, not hypermetabolic. No hypermetabolic lymphadenopathy is appreciated in the abdomen or pelvis. Vascular: Atherosclerotic calcifications with no abdominal aortic aneurysm. Musculoskeletal: Small fat containing left inguinal hernia. Small fat containing epigastric ventral hernia. Sclerotic focus of the left acetabulum is not hypermetabolic, unchanged. Bilateral L5 pars defects with grade 2 anterolisthesis of L5 on S1 again noted. Degenerative changes of the spine. No worrisome osseous lesions or activity are appreciated. IMPRESSION 1. No residual hypermetabolic lymphadenopathy is identified. The spleen and splenic lesions have continued to decrease in size without worrisome activity. No worrisome pulmonary or peritoneal nodules are noted. Deauville score 1. 2. Mild long segment circumferential rectal wall thickening again noted without worrisome activity, potentially treatment related. Recommend correlation with colonoscopy history. 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 History of prostate cancer statuspost prostatectomy. Currently undergoing treatment. Restaging andsubsequent treatment planning. COMPARISON: PET-CT 07/09/2024 as well as exams dating back to 04/24/2024. TECHNIQUE: Following the intravenous administration of 11.65 millicurie F 18 FDG [id number] cc iodinated contrast PET-CT was performed from the skull vertex tothe mid thighs. Multiplanar and MIP reconstructions were created. Serumglucose 102 mg/dL. A dose lowering technique was used for this procedure, which may include,but is not limited to, dose reduction technique(s), automated exposurecontrol techniques, use of iterative reconstruction techniques, and ALARA(as low as reasonably achievable) or ALARA/IMAGE Gently techniques. FINDINGS: Head and neck: Intracranial: No mass, mass effect, or worrisome activity isappreciated. Extracranial: No mass or worrisome activity is appreciated. Chest: Cardiovascular: Right chest wall [id number]. Normal heart size. Nosignificant pericardial effusion. The thoracic aorta is normal incaliber. Pulmonary: Elevation of the right hemidiaphragm with compressiveatelectasis of the right lung base. No worrisome pulmonary nodules oractivity are appreciated. Lymphatics: No hypermetabolic lymphadenopathy is identified in thechest. Abdomen and pelvis: Hepatobiliary: Probable mildly heterogeneous hepatic parenchymal activityagain noted. No convincing worrisome hepatic or pancreatic activity isnoted. Gallbladder appears unremarkable. No significant biliary ductaldilatation is noted. : The adrenal glands are unremarkable. Bilateral renal cysts areredemonstrated. No hydronephrosis. The urinary bladder is not welldistended though appears unremarkable. Status post radical prostatectomywithout worrisome nodularity or activity appreciated at the prostatectomybed to suggest local recurrence of malignancy. GI: Mild long segment circumferential rectal wall thickening again notedwithout worrisome activity, potentially treatment related. Colonicdiverticulosis without evidence of acute diverticulitis. The appendix isunremarkable. Probable physiologic activity of the stomach and smallbowel. No free intraperitoneal fluid or air is appreciated. Nohypermetabolic peritoneal nodules are noted. Lymphatics: There is splenomegaly though the spleen has decreased in size.Hypoattenuating splenic lesions have decreased in size as well. Noworrisome splenic activity is noted. Prominent periaortic lymph nodeshave further decreased in size, not hypermetabolic. Ill-defined softtissue attenuation of the retroperitoneum above the level of the celiacaxis is less pronounced as well, not hypermetabolic. No hypermetaboliclymphadenopathy is appreciated in the abdomen or pelvis. Vascular: Atherosclerotic calcifications with no abdominal aorticaneurysm. Musculoskeletal: Small fat containing left inguinal hernia. Small fatcontaining epigastric ventral hernia. Sclerotic focus of the leftacetabulum is not hypermetabolic, unchanged. Bilateral L5 pars defectswith grade 2 anterolisthesis of L5 on S1 again noted. Degenerativechanges of the spine. No worrisome osseous lesions or activity areappreciated. IMPRESSION 1. No residual hypermetabolic lymphadenopathy is identified. The spleenand splenic lesions have continued to decrease in size without worrisomeactivity. No worrisome pulmonary or peritoneal nodules are noted.Deauville score 1. 2. Mild long segment circumferential rectal wall thickening again notedwithout worrisome activity, potentially treatment related. Recommendcorrelation with colonoscopy history. Electronically signed by: LEE GONZALEZ MD Date of Signature: 11/27/2024 10:48:05 us Forrest Yang MD IMG PET Final Result * (ABNORMAL) CBC WITH AUTO DIFF OH (11/27/2024 9:39 AM CDT) WBC 4.5 4.0 - 10.0 10*3/uL [facility] [employer] HGB 14.7 13.7 - 17.5 g/dL [facility] [employer] [facility] HCT 42.7 40.1 - 51.0 % [facility] [employer]ATION MACHINE [employer] [facility] PLT 122(L) 163 - 369 10*3/uL [facility] [employer] MACHINE [employer] [facility] MPV 10.9 9.4 - 12.4 fL [facility] [employer] MACHINE [employer] [facility] RBC 4.93 4.63 - 6.08 10*6/uL [facility] COMBINATION MACHINE [employer] [facility] MCV 87 79 - 95 fL [facility] [employer]BINATION MACHINE [employer] [facility] MCH 29.8 25.6 - 32.2 pg [facility] COMBINATION MACHINE [employer]TER [facility] MCHC 34.4 32.2 - 36.5 g/dL [facility] [employer] MACHINE [employer] [facility] RDW 13.4 11.6 - 14.4 % [facility] [employer] MACHINE [employer] [facility] Neutrophils % 67.1(H) 36.0 - 66.0 % [facility] [employer]ATION MACHINE [employer] [facility] Lymphocytes % 18.7(L) 19.0 - 40.0 % [facility] COMBINATION MACHINE [employer] [facility] Monocytes % 11.6 4.1 - 12.1 % [facility] COMBINATION MACHINE [employer]TER [facility] Eosinophils % 2.0 0.0 - 3.5 % [facility] COMBINATION MACHINE [employer] [facility] Basophils % 0.4 0.0 - 1.0 % [facility] COMBINATION MACHINE [employer] [facility] Nucleated RBC 0 0 - 1 % [facility] COMBINATION MACHINE [employer] [facility] Absolute Neutrophils 3.0 1.4 - 6.6 10*3/uL [facility]BINATION MACHINE [employer] [facility] Absolute Lymphocytes 0.8 0.8 - 4.0 10*3/uL [facility]ATION MACHINE [employer] [facility] Absolute Monocytes 0.5 0.2 - 1.2 10*3/uL [facility]BINATION MACHINE [employer] [facility] Absolute Eosinophils 0.1 0.0 - 0.4 10*3/uL [facility]BINATION MACHINE [employer] [facility] Absolute Basophils 0.0 0.0 - 0.1 10*3/uL [facility] MACHINE [employer] [facility] 11/27/2024 9:39 AM CDT us Forrest Yang MD LAB SEND OUTS Final Result [facility] [place] [address], [place] [phone] * LACTATE DEHYDROGENASE (LD) (11/27/2024 9:39 AM CDT) LDH 151 140 - 271 U/L [facility] Blood 11/27/2024 9:39 AM CDT Narrative [facility] - 11/27/2024 10:29 AM CDT Release to patient->Immediate Forrest Yang MD CHEMISTRY ORDERABLES Final R esult Performing Organization Address [facility]/ZIP Co de Phone Number [facility] [place] [address], [place] [phone] * (ABNORMAL) CMP (COMPREHENSIVE METABOLIC PANEL) (11/27/2024 9:39 AM CDT) Glucose 93 70 - 105 mg/dL [facility] Blood Urea Nitrogen 18 7 - 25 mg/dL [facility] Creatinine 0.8 0.7 - 1.3 mg/dL [facility] Sodium 140 136 - 145 mEq/L [facility] Potassium 3.9 3.5 - 5.1 mEq/L [facility] Chloride 105 98 - 107 mEq/L [facility] Bicarbonate 29 21 - 31 mEq/L [facility] Total Bilirubin 1.3(H) 0.3 - 1.0 mg/dL [facility] Alk. Phosphatase 80 34 - 104 U/L [facility] Aspartate Aminotransferase 17 13 - 39 U/L [facility] Alanine Aminotransferase 17 7 - 52 U/L [facility] Total Protein 6.0(L) 6.4 - 8.9 g/dL [facility] Albumin 4.6 3.5 - 5.7 g/dL [facility] Calcium 9.4 8.6 - 10.3 mg/dL [facility] Anion Gap 9.9 7.0 - 15.0 mEq/L [facility] Globulin 1.4(L) 2.0 - 3.5 g/dL [facility] EGFR 103 >60 ml/min/1. 73m2 [facility] [employer]ACH[employer] [facility] Comment: This eGFR is calculated using 2020 CKD-EPI Creatinine equation without race modifier based on the NKF-ASN task force recommendations Equation: qXWM=567*min(SCr/k,1)a*max(SCr/k,1)-1.200*0.9938Age*1.012 (if female), where SCr is serum creatinine, k is 0.7 for females and 0.9 for males, and a is -0.241 for females and -0.302 for males Blood 11/27/2024 9:39 AM CDT Narrative [facility] - 11/27/2024 10:29 AM CDT Release to patient->Immediate IS THE PATIENT REQUIRED TO BE FASTING FOR 8 HOURS?->No Forrest Yang MD CHEMISTRY ORDERABLES Final R esult Performing Organization Address City/[facility] Co de Phone Number [facility] [place] [address], * PSA DIAGNOSTIC,TOTAL (04/16/2024 9:21 AM RECRUITMENT OFFICER) PSA <0.01 0.00 - 4.00 ng/mL [facility] Comment: Karoline Paramagnetic Particle Chemiluminescent Immunoassay Method. Standardized against the WHO standard. Blood 04/16/2024 9:21 AM RECRUITMENT OFFICER Carmen [facility] - 04/16/2024 2:48 PM RECRUITMENT OFFICER Release to patient->Immediate Forrest Yang MD CHEMISTRY ORDERABLES Final R esult [facility] [address] [place] [address], from Last 3 Months or Most Recently Relevant to Health Maintenance Insurance [facility] Care Teams Design Sales Consultant Relationship Specialty Start Date End Date Ford Putnam DO [address] [place] [id number] PCP - General Family Medicine 04/16/24 Forrest Yang MD [address] [place] [phone] Consulting Physician Oncology 04/16/24
[2025-02-15 08:47] LABS: Estimated Glomerular Filt Rate > 60
== END 2025-02-15 08:27 | disposition home or self-care (01) ==
PROVIDERS: Visit Provider Nurse Practitioner Family
DX: R16.1 Splenomegaly, not elsewhere classified (principal); M51.86 Other intervertebral disc disorders, lumbar region
CPT/HCPCS: 74178; Q9967

== ENCOUNTER 2025-02-22 00:49 | Day surgery (SDC) | payer OTHER, SELFPAY ==
[2025-02-10 11:54] VITALS: BMI 37.2
[2025-02-22] MEDS: LACTATED RINGERS 1,000 ML 150 ML IV CONT (09:58)
--- NOTE | 2025-02-22 10:09 | PM.IMHP ---
H&P: HPI History of Present Illness Date/Time: 02/22/25 10:09 Chief Complaint: History of colon polyps Narrative: The patient has a history of colonic polyps, the last colonoscopy was in 2020, finding multiple adenomas. Review of Systems Review of Systems: All systems reviewed & are unremarkable except as noted in HPI and below [facility] Past Medical History Medical History (Updated 02/22/25 @ 10:11 by Matthew Beltran MD) Cancer Hypertension Surgical History Surgical History (Updated 04/21/24 @ 10:13 by June Lopez MA) H/O colonoscopy H/O radical prostatectomy Family History Family History Father Malignant neoplasm of prostate Esophageal cancer Sibling Malignant neoplasm of prostate Basal cell carcinoma Mother Hypertension Basal cell carcinoma Other Stomach cancer paternal uncle Social History Social History Smoking status: Never smoker Second hand tobacco smoke exposure: No Alcohol intake: current Drinks per week: 1 Substance use: never Substance use type: does not use Do You Feel Safe in your Home?: Yes Lack of Transportation: No Lack of Food: Never True Current Housing: I Have Housing Concerned About Future Housing: No Difficulty Paying Gas/Electric Bills: No Difficulty Paying for Meds: No Currently Unemployed: No Education: Bachelor's Degree Difficulty w/ Childcare or Family Care: No Living arrangements: with family Spiritual care concerns: No Meds Home Medications and Allergies Home Medications ?Medication ?Instructions ?Recorded ?Confirmed ?Type amlodipine 5 mg tablet 5 mg PO HS 05/09/23 02/22/25 History atorvastatin 20 mg tablet 20 mg PO HS 05/09/23 02/22/25 History hydrochlorothiazide 12.5 mg tablet 12.5 mg PO DAILY 05/09/23 02/10/25 History jbzqxwic-kf-fhstr 300 mcg-K 60 1 tablet PO DAILY 05/09/23 02/10/25 History mcg-lycop 600 mcg-lutein 300 mcg tablet (Centrum Silver Men) tramadol 50 mg tablet 50 mg PO Q6H PRN pain #20 tabs 05/22/23 02/10/25 Rx potassium chloride 20 mEq 20 meq PO DAILY #30 tabs 05/26/23 02/10/25 Rx tablet,extended release (K-Tab) aluminum-mag hydroxide-simethicone 10 ml PO QID PRN dyspepsia #300 mL 04/09/24 02/10/25 Rx 200 mg-200 mg-20 mg/5 mL oral susp (Maalox Advanced) dicyclomine 20 mg tablet 20 mg PO TID PRN abdominal pain 04/09/24 02/10/25 Rx #30 tabs ondansetron 4 mg disintegrating 4 mg PO Q8H PRN nausea and 04/09/24 02/10/25 Rx tablet vomiting #10 tabs oxycodone 5 mg capsule 5 mg PO Q8H PRN pain #10 caps 04/09/24 02/10/25 Rx polyethylene glycol 3350 17 17 g PO DAILY #238 grams 04/09/24 02/10/25 Rx gram/dose oral powder (Miralax) famotidine 40 mg tablet 40 mg PO DAILY #30 tabs 04/21/24 02/10/25 Rx gabapentin 300 mg capsule 300 mg PO BID 02/10/25 02/22/25 History losartan 25 mg tablet 25 mg PO DAILY 02/10/25 02/22/25 History Allergies Allergy/AdvReac Type Severity Reaction Status Date / Time No Known Allergies Allergy Verified 02/10/25 11:48 Exam Const: General: cooperative and healthy appearing Resp: Effort & Inspection: normal respiratory effort and able to speak in complete sentences Auscultation: clear to auscultation bilaterally Cardio: Rate: regular rate Rhythm: regular rhythm GI: Inspection: normal to inspection GI Palp: No No hepatosplenomegaly present Auscultation: normal bowel sounds Rectal Exam: deferred Skin: General skin exam: normal color Psych: Appearance: grossly normal Mental Status: mental status grossly normal Assessment and Plan Assessment and plan (1) History of colonic polyps: Code(s): Z86.0100 - Personal history of colon polyps, unspecified Status: Acute Assessment and Plan: The patient is deemed a good candidate for the procedure. Consent signed. Will proceed.
--- NOTE | 2025-02-22 10:31 | S_PTH ---
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
[2025-02-22 10:42] VITALS: BP 124/83; PULSE 93; RESP 20; O2SAT 95
[2025-02-22 10:52] VITALS: BP 121/88; PULSE 95; RESP 20; O2SAT 97
[2025-02-22 11:02] VITALS: BP 115/84; PULSE 88; RESP 18; O2SAT 98
[2025-02-22 11:12] VITALS: BP 122/81; PULSE 81; RESP 16; O2SAT 98
--- NOTE | 2025-02-23 07:04 | WPDANESEPPF ---
Anes - Initial Pre Proc Eval Procedure: Operation Date: 02/22/25 11:00 Proposed Procedures p Colonoscopy - Matthew Beltran MD Date/Time: 02/23/25 07:04 Surgeon: Matthew Beltran MD Pre Op Diagnosis: hx of colon polyps,Eructation,abd weight loss Patient Data Age: 59 Gender: M Height: 1.91 m Weight: 130 kg Last Vital Signs Pulse 81 02/22/25 11:12 Resp 16 02/22/25 11:12 BP 122/81 02/22/25 11:12 Pulse Ox 98 02/22/25 11:12 O2 Del Method Room Air 02/22/25 11:12 Allergies Allergy/AdvReac Type Severity Reaction Status Date / Time No Known Allergies Allergy Verified 02/10/25 11:48 Home Medications ?Medication ?Instructions ?Recorded ?Confirmed ?Type amlodipine 5 mg tablet 5 mg PO HS 05/09/23 02/22/25 History atorvastatin 20 mg tablet 20 mg PO HS 05/09/23 02/22/25 History hydrochlorothiazide 12.5 mg tablet 12.5 mg PO DAILY 05/09/23 02/10/25 History fkbwdsrq-rx-loaio 300 mcg-K 60 1 tablet PO DAILY 05/09/23 02/10/25 History mcg-lycop 600 mcg-lutein 300 mcg tablet (Centrum Silver Men) tramadol 50 mg tablet 50 mg PO Q6H PRN pain #20 tabs 05/22/23 02/10/25 Rx potassium chloride 20 mEq 20 meq PO DAILY #30 tabs 05/26/23 02/10/25 Rx tablet,extended release (K-Tab) aluminum-mag hydroxide-simethicone 10 ml PO QID PRN dyspepsia #300 mL 04/09/24 02/10/25 Rx 200 mg-200 mg-20 mg/5 mL oral susp (Maalox Advanced) dicyclomine 20 mg tablet 20 mg PO TID PRN abdominal pain 04/09/24 02/10/25 Rx #30 tabs ondansetron 4 mg disintegrating 4 mg PO Q8H PRN nausea and 04/09/24 02/10/25 Rx tablet vomiting #10 tabs oxycodone 5 mg capsule 5 mg PO Q8H PRN pain #10 caps 04/09/24 02/10/25 Rx polyethylene glycol 3350 17 17 g PO DAILY #238 grams 04/09/24 02/10/25 Rx gram/dose oral powder (Miralax) famotidine 40 mg tablet 40 mg PO DAILY #30 tabs 04/21/24 02/10/25 Rx gabapentin 300 mg capsule 300 mg PO BID 02/10/25 02/22/25 History losartan 25 mg tablet 25 mg PO DAILY 02/10/25 02/22/25 History Patient hx anesthesia problems: none Family hx anesthesia problems: none Results Review: All pre-operative results and documents have been reviewed as part of the pre-operative evaluation. [facility] Past Medical History Medical History Cancer Hypertension Surgical History Surgical History H/O colonoscopy H/O radical prostatectomy Family History Family History Father Malignant neoplasm of prostate Esophageal cancer Sibling Malignant neoplasm of prostate Basal cell carcinoma Mother Hypertension Basal cell carcinoma Other Stomach cancer paternal uncle Social History Social History Smoking status: Never smoker Second hand tobacco smoke exposure: No Alcohol intake: current Drinks per week: 1 Substance use: never Substance use type: does not use Do You Feel Safe in your Home?: Yes Lack of Transportation: No Lack of Food: Never True Current Housing: I Have Housing Concerned About Future Housing: No Difficulty Paying Gas/Electric Bills: No Difficulty Paying for Meds: No Currently Unemployed: No Education: Bachelor's Degree Difficulty w/ Childcare or Family Care: No Living arrangements: with family Spiritual care concerns: No Anes - Eval Final PreProcedure Day of Procedure 02/23/25 07:04 Patient weight: obese Heart: regular rate and rhythm Lungs: decreased breath sounds Airway: Mallampati scale class III Neurological: alert and oriented Last oral intake: >/= 8 hours ASA classification: III Emergent: no Anesthetic plan: proceed Anesthesia type and monitoring: general GIVS and standard monitoring Results Review: All pre-operative results and documents have been reviewed as part of the pre-operative evaluation. Informed Consent: The patient's anesthetic plan and its attendant risks and benefits were discussed with the patient/family/POA. Questions were solicited and answers provided to the satisfaction of the patient/family/POA.
== END 2025-02-22 11:24 | disposition home or self-care (01) ==
PROVIDERS: Visit Provider Internal Medicine Gastroenterology
PROC: 0DJD8ZZ Inspection of Lower Intestinal Tract, Via Natural or Artificial Opening Endoscopic (ICD-10-PCS; CPT 45378; principal; 2025-02-22 11:00)
DX: Z12.11 Encounter for screening for malignant neoplasm of colon (principal); D12.0 Benign neoplasm of cecum; K64.8 Other hemorrhoids; K57.30 Diverticulosis of large intestine without perforation or abscess without bleeding; I10 Essential (primary) hypertension; E66.9 Obesity, unspecified; Z68.35 Body mass index [BMI] 35.0-35.9, adult; Z79.891 Long term (current) use of opiate analgesic; Z98.890 Other specified postprocedural states; Z85.9 Personal history of malignant neoplasm, unspecified; Z80.42 Family history of malignant neoplasm of prostate; Z80.0 Family history of malignant neoplasm of digestive organs; Z80.8 Family history of malignant neoplasm of other organs or systems
CPT/HCPCS: 45385; 88305; J2704; J7120